=== PATIENT | male | born 1945 | race Caucasian/White ===

== ENCOUNTER → 2016-10-22 | Outpatient (REF) | payer MEDICARE ==
[~2016-10-22] MED LIST: /ADVA50050 INH; /TAMS4CA; /TIOT18INH; /WARF2TA PO; /WARF5TA; ALDA25TA2; ALLO100T PO; ALLO300T; AMMO12CR4 TOP; ASPI1TAB PO; ATOM40CA PO; BABY81CH; BACIDCA PO; BUPR75TA5 PO; CALCTAB43 PO; CARV3.12; CELE20TA; CELE20TA PO; CIPR500T19; CLIN300C PO; COLA100C PO; COMBAER6 INH; COMBIN INH; COMBVENT; CORE3.12 PO; COUM1TAB14 PO; COUM1TAB17 PO; COUM1TAB19 PO; COUM2.5T11 PO; COZA25TA8; CRES40TA PO; Coreg PO; DOCU10ELUD PO; FLUD1TA PO; FURO20TA2 PO; FURO40TA2 PO; GABA300C3 PO; GLUC1KIT SC; GLUC5TAB3 PO; HUMA100I5 SC; HUMOLOG SQ; INSUHUMDS SC; INSULANT SC; INSULIN R; KLOR1TAB77 PO; LAC-12LO3 TOP; MIDO5TA PO; NIFE15CA PO; NORC5TAB PO; NYST100024 TOP; Nystatin Powder TOP; OMEP40CA2 PO; PERC5TAB6 PO; POTA10CA PO; PRIL20CA PO; PROM-190 PO; Potassium PO; ROZE8TAB9 PO; SIMV80TA; SPIR25TA2 PO; TAMS0.4C2 PO; TIOT18INH INH; TYLE167L PO; ULOR80TA PO; ULOR80TA2 PO; VICO5TAB; VITA10002 PO; VITA100027; VITMTA PO; WARF-21 PO; WARFARIN; ZETI10TA; ZETI10TA2 PO; ZINC60OI TOP
[2016-10-22 12:07] LABS: ALBUMIN 3.4 GM/DL (3.2-5.2); ALBUMIN/GLOBULIN RATIO 1.21 (1.00-1.93); ALKALINE PHOSPHATASE 64 U/L (45-117); ALT/SGPT 66 U/L (12-78); ANION GAP 10 MEQ/L (8-16); AST/SGOT 47 U/L (15-37); BILIRUBIN,TOTAL 0.9 MG/DL (0.2-1.0); BLOOD UREA NITROGEN 23 MG/DL (7-18); CALCIUM LEVEL 8.6 MG/DL (8.8-10.2); CARBON DIOXIDE LEVEL 24 MEQ/L (21-32); CHLORIDE LEVEL 109 MEQ/L (98-107); CREATININE FOR GFR 1.17 MG/DL (0.70-1.30); GLOMERULAR FILTRATION RATE > 60.0 (>42); GLUCOSE, FASTING 123 MG/DL (83-110); POTASSIUM SERUM 4.3 MEQ/L (3.5-5.1); SODIUM LEVEL 143 MEQ/L (136-145); TOTAL PROTEIN 6.2 GM/DL (6.4-8.2)
== END ==
LOC: M SFHCPLAZ 11:36
PROVIDERS: ATTEND Family Medicine
DX: N18.3 Chronic kidney disease, stage 3 (moderate) (principal)

== ENCOUNTER → 2016-10-24 | Outpatient (CLI) | payer MEDICAID, MEDICARE ==
--- NOTE | 2016-10-24 16:45 | REP ---
CT study of the chest without contrast: History: Weight loss. No comparison chest CT. CT findings: There is an implanted cardiac monitoring device in the left anterior subcutaneous space. Prior median sternotomy wires are seen. The patient is also status post gastric bypass surgery. There is gallbladder wall thickening and a small hiatal hernia is noted. Extensive vascular calcification is seen. There is a fairly large right thyroid low density lesion consistent with cyst or nodule. This measures 3.9 by 2.6 by 4.4 cm. There is no evidence of pleural effusion or pericardial effusion. There is an area of linear fibroatelectatic change in the right lower lobe. No pulmonary mass or nodule is appreciated. No bony destructive lesion is appreciated. Impression: 1. Patient status post median sternotomy with cardiac monitoring device. Status post gastric bypass procedure 2. Fibroatelectatic changes right lower lobe. 3. Thickening of the gallbladder wall diffusely, question cholecystitis. 4. Small sliding hiatal hernia. 5. 4.4 cm right thyroid nodule or cyst. This could be further evaluated if desired by thyroid sonography. Signed by Mitul Corbett MD 10/24/2016 04:51 P
== END ==
LOC: M RAD 10:25
PROVIDERS: ATTEND Family Medicine
DX: R91.8 Other nonspecific abnormal finding of lung field (principal); E04.1 Nontoxic single thyroid nodule; K44.9 Diaphragmatic hernia without obstruction or gangrene; Z98.84 Bariatric surgery status

== ENCOUNTER → 2016-11-01 | Outpatient (CLI) | payer MEDICARE ==
--- NOTE | 2016-11-01 16:02 | REP ---
The thyroid ultrasound: Comparison is the CT of the chest dated 10/24/2016. Thyroid right lobe: The right lobe is enlarged measuring 6.7 x 3.2 x 3.8 cm. There is a large mass occupying the entire mid and lower pole of the right lobe measuring 4.5 x 3.2 x 2.6 cm. Left lobe: The left lobe is enlarged measuring 5.1 x 1.7 x 1.9 cm. There are two nodules in the mid pole left lobe the larger measuring 0.9 x 0.5 x 0.6 cm, the smaller measuring 0.5 x 0.4 x 0.4 cm. Isthmus: The isthmus is thickened measuring 4.7 mm. There is a cystic nodule in the isthmus on the right measuring 0.8 x 0.3 x 0.6 cm. There is a solid nodule centrally in the isthmus measuring 0.8 x 0.5 x 0.8 cm. Impression: Multiple thyroid nodules, the largest in the right lobe. Consider radionuclide thyroid scan and ultrasound guided needle biopsy. Signed by Ming Qiu MD 11/01/2016 03:54 P
== END ==
LOC: M RAD 14:41
PROVIDERS: ATTEND Physician Assistant Medical
DX: E07.89 Other specified disorders of thyroid (principal); E04.9 Nontoxic goiter, unspecified; E04.1 Nontoxic single thyroid nodule

== ENCOUNTER → 2016-11-01 | Outpatient (CLI) | payer MEDICARE ==
--- NOTE | 2016-11-01 15:20 | REP ---
Clinical: Abdominal pain. Weight loss. Findings: Lung bases demonstrate chronic changes. Liver, spleen, pancreas, gallbladder, bilateral adrenal glands are normal for noncontrast evaluation. 2 mm nonobstructing left renal calculus and mild left renal atrophic changes are suggested. Right kidney hypodensity likely represents a 1.3 cm cyst. The enteric system is without obstruction or acute inflammatory process. Evidence for prior small bowel surgery and gastric bypass surgery noted. Diffuse diverticulosis appreciated without acute diverticulitis. Pelvis demonstrates partially collapsed bladder and age appropriate prostate/seminal vesicles. No ascites. No obvious adenopathy. No free air. No obvious mass lesion. Atherosclerotic changes of the aorta and branch vessels noted. Musculoskeletal structures demonstrate degenerative changes without focal osseous abnormality. Impression: 1. Suspected right renal cyst and 2 mm nonobstructing left renal calculus. 2. Diverticulosis. 3. No acute intra-abdominal or pelvic pathology appreciated. Signed by Dipak Lennon MD 11/01/2016 03:11 P
== END ==
LOC: M RAD 14:39
PROVIDERS: ATTEND Family Medicine
DX: E04.1 Nontoxic single thyroid nodule (principal); R63.4 Abnormal weight loss; K57.30 Diverticulosis of large intestine without perforation or abscess without bleeding

== ENCOUNTER → 2016-11-14 | Outpatient (CLI) | payer MEDICARE ==
--- NOTE | 2016-11-15 14:49 | REP ---
THYROID UPTAKE AND SCAN: HISTORY: Right thyroid mass times two, left-sided cystic nodule. TECHNIQUE: 329.0 microcuries of I 123 sodium iodine is ingested and 2 and 24-uptake values are acquired. Functional images are acquired. FINDINGS: The 2-hour uptake value is quite low at 2.22% (6-12%). 24 uptake value is also low at 9.23% (25 to 35%). Functional thyroid images demonstrate an ill-defined photopenic area in the mid position of the right thyroid lobe as seen on IBARRA oblique projection. No cold or warm lesion is seen on the left. IMPRESSION: Photopenic nodule on the right. Decreased thyroid uptake. Signed by Mitul Corbett MD 11/15/2016 04:47 P
== END ==
LOC: M RAD 12:35
PROVIDERS: ATTEND Physician Assistant Medical
DX: E04.9 Nontoxic goiter, unspecified (principal)
CPT/HCPCS: 78014; A9516

== ENCOUNTER → 2016-11-28 | Outpatient (CLI) | payer MEDICAID, MEDICARE, OTHER ==
[~2016-11-28] MED LIST changes: +LIDOCAINE 1% MDV 20ML VIAL As Ordered ONE
--- NOTE | 2016-11-28 16:47 | REP ---
ULTRASOUND GUIDED THYROID BIOPSY: The procedure was performed under the direct supervision of Dr. Corbett. The patient has a history of a large right thyroid mass measuring 4.5 x 3.2 x 2.6 cm as well as two nodules in the mid-pole of the left thyroid. The largest of which measuring 0.9 x 0.5 x 0.6 cm seen on a previous ultrasound dated 11/01/2016. The risks and benefits of the procedure were explained to the patient and informed consent was obtained. The right thyroid mass and largest left thyroid nodule was localized using ultrasound guidance. The skin was prepped and draped in a sterile fashion. 1% Xylocaine was used as a local anesthetic. The left thyroid was addressed first. Using ultrasound guidance, 4 fine-needle aspirations were obtained using 25-gauge needles. The right thyroid mass was then addressed. Using ultrasound guidance 4 fine-needle aspirations were obtained using 25-gauge needles. The patient tolerated the procedure well and there were no immediate complications. After the appropriate amount of monitored convalesce the patient was discharged from the department. Reviewed by JILLIAN Holm 11/29/2016 02:12 PEdited and Signed by Mitul Corbett MD 11/29/2016 05:02 P
== END | disposition home or self-care (01) ==
LOC: M RADPRO 11:30
PROVIDERS: ATTEND Physician Assistant Medical
DX: E07.89 Other specified disorders of thyroid (principal); Z91.041 Radiographic dye allergy status; Z91.018 Allergy to other foods; Z79.899 Other long term (current) drug therapy; Z79.82 Long term (current) use of aspirin

== ENCOUNTER → 2016-12-02 | Outpatient (REF) | payer MEDICARE, MEDICAID, OTHER ==
[~2016-12-02] MED LIST changes: -COLA100C PO; +COLA100C3 PO; +ELIQ5TAB PO; +GABA-282 PO; -GABA300C3 PO; -LIDOCAINE 1% MDV 20ML VIAL As Ordered ONE; +NEUR300C PO; +NORC1TAB4 PO; -NORC5TAB PO; +TRAZ100T4 PO
[2016-12-02 12:11] LABS: BASO % 0.6 % (0.0-1.0); EOS % 1.6 % (0.0-3.0); LARGE UNSTAINED CELL # 0.1 K/mm3 (0.0-0.4); LARGE UNSTAINED CELL % 2.9 % (0.0-4.0); LYMPH # 1.2 K/mm3 (1.5-4.5); LYMPH % 31.9 % (24.0-44.0); MEAN CORPUSCULAR HEMOGLOBIN 32.1 pg (27.0-33.0); MEAN CORPUSCULAR HGB CONC 33.5 g/dl (32.0-36.5); MEAN CORPUSCULAR VOLUME 95.8 fl (80.0-96.0); MONO # 0.2 K/mm3 (0.0-0.8); MONO % 5.7 % (0.0-5.0); NEUTROPHILS # 1.9 K/mm3 (1.8-7.7); NEUTROPHILS % 57.4 % (36.0-66.0); PLATELET COUNT, AUTOMATED 115 k/mm3 (150-450); WHITE BLOOD COUNT 3.3 K/mm3 (4.0-10.0)
[2016-12-02 12:40] LABS: ALBUMIN 3.1 GM/DL (3.2-5.2); ALBUMIN/GLOBULIN RATIO 1.35 (1.00-1.93); ALKALINE PHOSPHATASE 50 U/L (45-117); ALT/SGPT 35 U/L (12-78); ANION GAP 6 MEQ/L (8-16); AST/SGOT 30 U/L (15-37); BILIRUBIN,TOTAL 0.7 MG/DL (0.2-1.0); BLOOD UREA NITROGEN 28 MG/DL (7-18); CALCIUM LEVEL 8.3 MG/DL (8.8-10.2); CARBON DIOXIDE LEVEL 28 MEQ/L (21-32); CHLORIDE LEVEL 108 MEQ/L (98-107); CHOLESTEROL LEVEL 90 MG/DL (<200); FREE T4 1.01 NG/DL (0.76-1.46); GLOMERULAR FILTRATION RATE 57.6 (>42); GLUCOSE, FASTING 100 MG/DL (83-110); POTASSIUM SERUM 4.9 MEQ/L (3.5-5.1); SODIUM LEVEL 142 MEQ/L (136-145); TOTAL PROTEIN 5.4 GM/DL (6.4-8.2); TRIGLYCERIDES LEVEL 83 MG/DL (<150)
[2016-12-05 00:06] LABS: BENZODIAZEPINES, URINE SCREEN Negative ng/mL (Cutoff=200); METHADONE, URINE SCREEN Negative ng/mL (Cutoff=300); pH, URINE 5.2 (4.5-8.9)
== END ==
LOC: M SFHCPLAZ 08:11
PROVIDERS: ATTEND Family Medicine
DX: N18.3 Chronic kidney disease, stage 3 (moderate) (principal); E78.5 Hyperlipidemia, unspecified; E11.22 Type 2 diabetes mellitus with diabetic chronic kidney disease; Z79.4 Long term (current) use of insulin; Z79.891 Long term (current) use of opiate analgesic; Z79.899 Other long term (current) drug therapy; Z79.82 Long term (current) use of aspirin; Z79.01 Long term (current) use of anticoagulants; Z79.84 Long term (current) use of oral hypoglycemic drugs; E07.89 Other specified disorders of thyroid; I95.1 Orthostatic hypotension; G47.09 Other insomnia; L89.151 Pressure ulcer of sacral region, stage 1
CPT/HCPCS: 80053; 80061; 80307; 81001; 82043; 82550; 83036; 84439; 84443; 85025; 86140; G0463

== ENCOUNTER 2016-12-11 21:25 | Emergency (ER) | payer MEDICARE ==
[~2016-12-11] VITALS: Ht 167.6 cm; Wt 66.7 kg
[~2016-12-11 21:25] MED LIST changes: -GLYCOPYRROLATE INJ 0.2 MG/ML 2 ML VIAL As Ordered ONE; -NS 1,000 ML IV SCH; -PROPOFOL 200 MG/20 ML VIAL As Ordered ONE; -ePHEDrine SULFATE 25 MG/5 ML(5MG/ML) SYRINGE As Ordered ONE
[2016-12-12 00:17] VITALS: BP 132/63
== END 2016-12-12 01:21 | disposition home or self-care (01) ==
LOC: EDBD 21:25 → M ED 22:47
DX: R33.0 Drug induced retention of urine (principal); E11.9 Type 2 diabetes mellitus without complications; J44.9 Chronic obstructive pulmonary disease, unspecified; I25.10 Atherosclerotic heart disease of native coronary artery without angina pectoris; K21.9 Gastro-esophageal reflux disease without esophagitis; N40.0 Benign prostatic hyperplasia without lower urinary tract symptoms; Z87.442 Personal history of urinary calculi; Z86.718 Personal history of other venous thrombosis and embolism; Z79.899 Other long term (current) drug therapy; Z79.82 Long term (current) use of aspirin; Z79.4 Long term (current) use of insulin; Z79.01 Long term (current) use of anticoagulants; Z91.018 Allergy to other foods; Z91.041 Radiographic dye allergy status

== ENCOUNTER → 2016-12-11 | Outpatient (CLI) | payer MEDICARE ==
[~2016-12-11] VITALS: Ht 172.7 cm; Wt 66.7 kg
[~2016-12-11] MED LIST changes: +GLYCOPYRROLATE INJ 0.2 MG/ML 2 ML VIAL As Ordered ONE; +NS 1,000 ML IV SCH; +PROPOFOL 200 MG/20 ML VIAL As Ordered ONE; +ePHEDrine SULFATE 25 MG/5 ML(5MG/ML) SYRINGE As Ordered ONE
--- NOTE | 2016-12-11 10:01 | ROOR ---
Patient Name: Allan Pérez Procedure Date: 12/11/2016 9:19 AM Date of : 1945 Age: 71 Room: [facility] Gender: Male Note Status: Finalized Procedure: Upper GI endoscopy Indications: Diagnostic procedure, Weight loss Providers: Keny Story MD Referring MD: Steve Hamlin MD Requesting Provider: Medicines: Monitored Anesthesia Care Complications: No immediate complications. Procedure: Pre-Anesthesia Assessment: - Prior to the procedure, a History and Physical was performed, and patient medications and allergies were reviewed. The patient is competent. The risks and benefits of the procedure and the sedation options and risks were discussed with the patient. All questions were answered and informed consent was obtained. Patient identification and proposed procedure were verified by the physician, the nurse and the anesthesiologist in the endoscopy suite. Mental Status Examination: alert and oriented. Airway Examination: normal oropharyngeal airway and neck mobility. Respiratory Examination: clear to auscultation. CV Examination: normal. Prophylactic Antibiotics: The patient does not require prophylactic antibiotics. Prior Anticoagulants: The patient has taken Eliquis (apixaban), last dose was 2 days prior to procedure. ASA Grade Assessment: III - A patient with severe systemic disease. After reviewing the risks and benefits, the patient was deemed in satisfactory condition to undergo the procedure. The anesthesia plan was to use monitored anesthesia care (MAC). Immediately prior to administration of medications, the patient was re-assessed for adequacy to receive sedatives. The heart rate, respiratory rate, oxygen saturations, blood pressure, adequacy of pulmonary ventilation, and response to care were monitored throughout the procedure. The physical status of the patient was re-assessed after the procedure. The Endoscope was introduced through the mouth, and advanced to the afferent and efferent jejunal loops. The upper GI endoscopy was accomplished without difficulty. The patient tolerated the procedure well. Findings: The examined esophagus was normal. Estimated blood loss: none. A small hiatal hernia was present. Estimated blood loss: none. Evidence of a gastric bypass was found. A gastric pouch with a normal size was found. The gastrojejunal anastomosis was characterized by healthy appearing mucosa. This was traversed. The lwvgu-[id number]-tffuegm limb was characterized by healthy appearing mucosa. The rbexpxoh-da-aznepkf limb was not examined as it could not be found. Impression: - Normal esophagus. - Small hiatal hernia. - Gastric bypass with a normal-sized pouch. Gastrojejunal anastomosis characterized by healthy appearing mucosa. - No specimens collected. - Normal examination. Recommendation: - Discharge patient to home (ambulatory). Keny Story MD Keny Story MD 12/11/2016 10:01:03 AM This report has been signed electronically. Number of Addenda: 0 Note Initiated On: 12/11/2016 9:19 AM Estimated Blood Loss: Estimated blood loss: none.
--- NOTE | 2016-12-11 10:05 | ROOR ---
Patient Name: lAlan Pérez Procedure Date: 12/11/2016 9:19 AM Date of : 1945 Age: 71 Room: [facility] Gender: Male Note Status: Finalized Procedure: Colonoscopy Indications: High risk colon cancer surveillance: Personal history of colonic polyps Providers: Keny Story MD Referring MD: Steev Hamlin MD Requesting Provider: Medicines: Monitored Anesthesia Care Complications: No immediate complications. Procedure: Pre-Anesthesia Assessment: - This assessment was completed prior to the administration of sedation. The Colonoscope was introduced through the anus and advanced to the cecum, identified by appendiceal orifice and ileocecal valve. The colonoscopy was performed without difficulty. The patient tolerated the procedure well. The quality of the bowel preparation was adequate to identify polyps. Findings: The perianal and digital rectal examinations were normal. A few small-mouthed diverticula were found in the sigmoid colon. A diminutive polyp was found in the hepatic flexure. The polyp was flat. The polyp was removed with a jumbo cold forceps. Resection and retrieval were complete. Estimated blood loss was minimal. A diminutive polyp was found in the proximal descending colon. The polyp was pedunculated. The polyp was removed with a jumbo cold forceps. Resection and retrieval were complete. Estimated blood loss was minimal. No additional abnormalities were found on retroflexion. Impression: - Diverticulosis in the sigmoid colon. - One diminutive polyp at the hepatic flexure, removed with a jumbo cold forceps. Resected and retrieved. - One diminutive polyp in the proximal descending colon, removed with a jumbo cold forceps. Resected and retrieved. Recommendation: - Discharge patient to home (ambulatory). - Resume Eliquis (apixaban) today at prior dose. - Await pathology results. - Telephone my office for pathology results in 2 weeks. Keny Story MD Keny Story MD 12/11/2016 10:05:07 AM This report has been signed electronically. Number of Addenda: 0 Note Initiated On: 12/11/2016 9:19 AM Estimated Blood Loss: Estimated blood loss was minimal.
[2016-12-11 10:23] VITALS: BP 98/55
== END | disposition home or self-care (01) ==
LOC: M OPP 07:08
PROVIDERS: ATTEND Surgery
DX: Z12.11 Encounter for screening for malignant neoplasm of colon (principal); D12.3 Benign neoplasm of transverse colon; D12.4 Benign neoplasm of descending colon; K57.30 Diverticulosis of large intestine without perforation or abscess without bleeding; R63.4 Abnormal weight loss; Z86.010 Personal history of colon polyps; K44.9 Diaphragmatic hernia without obstruction or gangrene; Z98.84 Bariatric surgery status; I25.10 Atherosclerotic heart disease of native coronary artery without angina pectoris; E78.5 Hyperlipidemia, unspecified; E10.9 Type 1 diabetes mellitus without complications; M10.9 Gout, unspecified; Z86.718 Personal history of other venous thrombosis and embolism; M19.90 Unspecified osteoarthritis, unspecified site; F32.9 Major depressive disorder, single episode, unspecified; G62.9 Polyneuropathy, unspecified; R06.83 Snoring; G47.30 Sleep apnea, unspecified; J44.9 Chronic obstructive pulmonary disease, unspecified; N18.9 Chronic kidney disease, unspecified; Z95.818 Presence of other cardiac implants and grafts; Z95.1 Presence of aortocoronary bypass graft; Z87.891 Personal history of nicotine dependence; Z91.018 Allergy to other foods; Z91.041 Radiographic dye allergy status; Z79.82 Long term (current) use of aspirin; Z79.4 Long term (current) use of insulin; Z96.41 Presence of insulin pump (external) (internal)

== ENCOUNTER → 2016-12-13 | Outpatient (CLI) | payer MEDICARE ==
[~2016-12-13] MED LIST changes: +LIDOCAINE 1% MDV 20ML VIAL As Ordered ONE
--- NOTE | 2016-12-13 18:40 | REP ---
ULTRASOUND GUIDED RIGHT THYROID BIOPSY: The procedure was performed under the direct supervision of Dr. Jefferson. The patient has a history of a large right thyroid mass measuring 4.5 x 3.2 x 2.6 cm seen on a previous ultrasound dated 11/01/2016. The patient had this biopsied on 11/28/2016, however the pathology results were nondiagnostic and therefore the patient is referred for rebiopsy of the right thyroid nodule. The risks and benefits of the procedure were explained to the patient and informed consent was obtained. The right thyroid mass was localized using ultrasound guidance. The skin was prepped and draped in a sterile fashion. 1% Xylocaine was used as a local anesthetic. Using ultrasound guidance 4 fine-needle aspirations were obtained using 25-gauge needles. All samples were sent to the lab for analysis. The patient tolerated the procedure well and there were no immediate complications. After the appropriate amount of monitored convalescence the patient was discharged from the department. Reviewed by JILLIAN Holm 12/16/2016 06:55 PEdited and Signed by Angel Jefferson MD 12/19/2016 09:53 A
== END | disposition home or self-care (01) ==
LOC: M RADPRO 08:25
PROVIDERS: ATTEND Physician Assistant Medical
DX: E07.89 Other specified disorders of thyroid (principal); E11.9 Type 2 diabetes mellitus without complications; I95.1 Orthostatic hypotension; G47.09 Other insomnia; L89.151 Pressure ulcer of sacral region, stage 1; Z79.899 Other long term (current) drug therapy; Z79.82 Long term (current) use of aspirin; Z79.4 Long term (current) use of insulin; Z91.041 Radiographic dye allergy status; Z88.8 Allergy status to other drugs, medicaments and biological substances

== ENCOUNTER → 2016-12-26 | Outpatient (CLI) | payer MEDICARE, OTHER ==
[~2016-12-26] MED LIST changes: -LIDOCAINE 1% MDV 20ML VIAL As Ordered ONE
[2016-12-26 09:32] LABS: BASO % 0.4 % (0.0-1.0); EOS # 0.1 K/mm3 (0.0-0.50); EOS % 3.9 % (0.0-3.0); LARGE UNSTAINED CELL # 0.1 K/mm3 (0.0-0.4); LARGE UNSTAINED CELL % 2.3 % (0.0-4.0); LYMPH # 0.7 K/mm3 (1.5-4.5); LYMPH % 23.3 % (24.0-44.0); MEAN CORPUSCULAR HEMOGLOBIN 31.5 pg (27.0-33.0); MEAN CORPUSCULAR HGB CONC 32.7 g/dl (32.0-36.5); MEAN CORPUSCULAR VOLUME 96.3 fl (80.0-96.0); MONO # 0.2 K/mm3 (0.0-0.8); MONO % 6.7 % (0.0-5.0); NEUTROPHILS # 1.7 K/mm3 (1.8-7.7); NEUTROPHILS % 63.4 % (36.0-66.0); PLATELET COUNT, AUTOMATED 126 k/mm3 (150-450); RED CELL DISTRIBUTION WIDTH 13.2 % (11.5-14.5)
[2016-12-26 12:16] LABS: ANION GAP 2 MEQ/L (8-16); BLOOD UREA NITROGEN 19 MG/DL (7-18); CALCIUM LEVEL 8.2 MG/DL (8.8-10.2); CARBON DIOXIDE LEVEL 32 MEQ/L (21-32); CHLORIDE LEVEL 106 MEQ/L (98-107); CREATININE FOR GFR 1.03 MG/DL (0.70-1.30); GLOMERULAR FILTRATION RATE > 60.0 (>42); GLUCOSE, FASTING 152 MG/DL (83-110); POTASSIUM SERUM 4.5 MEQ/L (3.5-5.1); SODIUM LEVEL 140 MEQ/L (136-145)
== END ==
LOC: M LAB 08:58
PROVIDERS: ATTEND Family Medicine
DX: R31.9 Hematuria, unspecified (principal)

== ENCOUNTER → 2016-12-27 | Outpatient (CLI) | payer MEDICARE ==
--- NOTE | 2016-12-27 08:22 | REP ---
CT ABDOMEN AND PELVIS WITHOUT CONTRAST: 12/27/2016. Comparison: 11/01/2016. Clinical history: Hematuria. Findings: Noncontrast renal stone protocol with coronal and sagittal recons.CT abdomen: Lung bases show very small bilateral effusions. Some minor dependent atelectatic change and basilar fibrotic changes left greater than right. Sternotomy wires are visible along with coronary artery calcifications and mediastinal clips. The heart is not enlarged. There is no pericardial thickening or effusion. There is a small hiatal hernia. Staple lines from gastric bypass are noted at the GE junction and the left upper quadrant. There is interposed right colon and hepatic flexure between the anterior abdominal wall, diaphragm, and the liver. No hepatosplenomegaly or focal hepatic mass. There is no biliary dilatation. Gallbladder shows slight wall thickening without calcified stone. Pancreas somewhat atrophic but without mass. There are calcifications aorta and branches without aneurysm. Adrenal gland show thickened limbs consistent with adrenal hyperplasia. No periaortic or other retroperitoneal pathologic sized lymphadenopathy. Mild to moderate stool throughout the abdominal portion of the colon without signs of colitis or diverticulitis. There is scattered diverticula. Small bowel loops show some gaseous distension in the upper abdomen, anterior and superior to the transverse colon but this configuration is unchanged. There are advanced degenerative disc changes and facet arthritic changes again noted lumbar spine and degenerative change lower thoracic spine as well. Visualized ribs intact. There is a lower pole cyst exophytic in the right kidney unchanged. In the left kidney is a 4 mm stone lower pole unchanged in location but increased in size from the October study. There is no hydronephrosis or hydroureter on either side. The ureters show normal course to the bladder. Neither ureter shows a stone. Subcutaneous fat all around the abdomen and pelvis shows edema suggesting anasarca. CT pelvis. The bony hips, pelvis, SI joints and lumbosacral junction show degenerative changes. No visible fracture or destructive lesion. Distal ureters without dilatation or stone. There is a nodular impression on the bladder base from enlarged prostate. The bladder wall is thickened. There are some air bubbles within it. Although there are bowel loops sitting on the bladder dome, I favor gas-forming organisms for urinary tract infection versus air introduced with bladder catheterization as I cannot clearly define a fistula from bowel. The distal left colon, sigmoid and rectum show no definite colitis or diverticulitis. There is no pelvic ascites or adenopathy. There is no perforation or free air in the abdomen or pelvis. No ventral or inguinal hernia. Surgical clips in the lower abdominal wall in the pelvis. Impression: 1. There is a 4 mm stone lower pole of the left kidney without hydronephrosis, hydroureter or ureteral stone. This has slightly increased in size since October. A small cyst projects off the lower pole of the right kidney unchanged. 2. Bladder with some wall thickening, nodular impression on the bladder base by enlarged prostate and some air bubbles in the bladder either from urinary tract infection with gas forming organism or catheterization recently. Although bowel loops abut the bladder, I cannot confirm a fistulous tract on these images without oral contrast. 3. No ascites, adenopathy or mass. 4. Atherosclerotic calcifications aorta and branches. Suspected anasarca. Prior gastric bypass. Signed by Angel Jefferson MD 12/27/2016 02:57 P
== END ==
LOC: M RAD 06:39
PROVIDERS: ATTEND Physician Assistant Medical
DX: N20.0 Calculus of kidney (principal); N28.1 Cyst of kidney, acquired; N32.89 Other specified disorders of bladder; I70.0 Atherosclerosis of aorta; Z98.84 Bariatric surgery status; N40.1 Benign prostatic hyperplasia with lower urinary tract symptoms

== ENCOUNTER → 2017-02-18 | Outpatient (REF) | payer MEDICARE, MEDICAID, OTHER ==
[~2017-02-18] MED LIST changes: +FINA5TAB2 PO; +FLOM5CAP PO; +MIDO10TA PO; +PRESCAP6 PO; +REFR0.5D8 OU
[2017-02-18 14:16] LABS: DIFF SLIDE NUMBER 213; MEAN CORPUSCULAR HEMOGLOBIN 32.8 pg (27.0-33.0); MEAN CORPUSCULAR HGB CONC 33.4 g/dl (32.0-36.5); MEAN CORPUSCULAR VOLUME 98.2 fl (80.0-96.0); PLATELET COUNT, AUTOMATED 119 k/mm3 (150-450); WHITE BLOOD COUNT 2.8 K/mm3 (4.0-10.0)
[2017-02-18 14:33] LABS: ALBUMIN 3.3 GM/DL (3.2-5.2); ALBUMIN/GLOBULIN RATIO 1.27 (1.00-1.93); ALKALINE PHOSPHATASE 64 U/L (45-117); ALT/SGPT 50 U/L (12-78); ANION GAP 3 MEQ/L (8-16); AST/SGOT 37 U/L (15-37); BILIRUBIN,TOTAL 0.6 MG/DL (0.2-1.0); BLOOD UREA NITROGEN 26 MG/DL (7-18); CALCIUM LEVEL 8.8 MG/DL (8.8-10.2); CARBON DIOXIDE LEVEL 32 MEQ/L (21-32); CHLORIDE LEVEL 107 MEQ/L (98-107); CREATININE FOR GFR 1.02 MG/DL (0.70-1.30); FERRITIN 39 NG/ML (26-388); GLOMERULAR FILTRATION RATE > 60.0 (>42); GLUCOSE, FASTING 105 MG/DL (83-110); MAGNESIUM LEVEL 2.2 MG/DL (1.8-2.4); PERCENT SATURATION 23.4 % (19.7-37.4); POTASSIUM SERUM 4.5 MEQ/L (3.5-5.1); SODIUM LEVEL 142 MEQ/L (136-145); TOTAL IRON BINDING CAPACITY 290 UG/DL (250-450); TOTAL PROTEIN 5.9 GM/DL (6.4-8.2)
[2017-02-18 14:56] LABS: ANISOCYTOSIS 1+; BASOPHILS 2 % (0-4)
[2017-02-21 11:13] LABS: ALBUMIN % 59.4 % (55.8-66.1); GAMMA GLOBULIN % 11.3 % (11.1-18.8)
== END ==
LOC: M SFHCPLAZ 11:32
PROVIDERS: ATTEND Family Medicine
DX: N18.3 Chronic kidney disease, stage 3 (moderate) (principal); E55.9 Vitamin D deficiency, unspecified; E04.2 Nontoxic multinodular goiter; D72.819 Decreased white blood cell count, unspecified; L89.152 Pressure ulcer of sacral region, stage 2; I87.2 Venous insufficiency (chronic) (peripheral); I83.009 Varicose veins of unspecified lower extremity with ulcer of unspecified site; K63.5 Polyp of colon; M47.816 Spondylosis without myelopathy or radiculopathy, lumbar region; N40.1 Benign prostatic hyperplasia with lower urinary tract symptoms; I95.1 Orthostatic hypotension; Z51.81 Encounter for therapeutic drug level monitoring; Z79.01 Long term (current) use of anticoagulants; I82.409 Acute embolism and thrombosis of unspecified deep veins of unspecified lower extremity; E11.40 Type 2 diabetes mellitus with diabetic neuropathy, unspecified; I25.10 Atherosclerotic heart disease of native coronary artery without angina pectoris; E78.5 Hyperlipidemia, unspecified; Z98.84 Bariatric surgery status; R27.0 Ataxia, unspecified; K76.0 Fatty (change of) liver, not elsewhere classified; F32.9 Major depressive disorder, single episode, unspecified; E53.8 Deficiency of other specified B group vitamins
CPT/HCPCS: 36415; 80053; 82306; 82728; 83036; 83550; 83735; 83970; 84165; 85025; G0463

== ENCOUNTER → 2017-02-24 | Outpatient (CLI) | payer MEDICARE, MEDICAID ==
--- NOTE | 2017-02-25 05:07 | REP ---
Clinical: Multinodular goiter. Technique: Real time rivas scale and color evaluation using linear high frequency transducer. Comparison: 11/01/2016. Findings: The thyroid gland is diffusely heterogeneous. Right lobe measures 6.3 x 3.3 x 3.9 cm with a large solid nodule measuring 4.4 x 3.4 x 2.6 cm as well as 8 mm complex partially calcified nodule and 7 mm cyst in the mid to lower pole. Isthmus measures 4.3 mm in width. Left lobe measures 4.3 x 1.6 x 1.2 cm with 6 mm complex partially calcified nodule in the mid pole as well as 8 mm and 5 mm nonspecific lower pole nodules. Impression: Thyroid gland with nodules as described above essentially unchanged compared to prior examination. Signed by Dipak Lennon MD 02/25/2017 04:59 A
== END ==
LOC: M RAD 09:31
PROVIDERS: ATTEND Family Medicine
DX: E04.2 Nontoxic multinodular goiter (principal)

== ENCOUNTER 2017-02-27 15:30 | Inpatient (IN) | payer MEDICARE, MEDICAID ==
[~2017-02-27] VITALS: Ht 172.7 cm; Wt 71.7 kg
[~2017-02-27 15:30] MED LIST changes: -FINA5TAB2 PO; -FLOM5CAP PO; -MIDO10TA PO; -PRESCAP6 PO; -REFR0.5D8 OU
[2017-02-27] MEDS ORDERED: FINA5TAB2 PO (15:53)
[2017-02-27] MEDS ORDERED: NORCO, ANEXSIA 5/325MG TABLET (HYDROcodone/ACETAMINOPHEN) PO ONE (17:45)
[2017-02-27 17:48] LABS: BASO % 0.7 % (0.0-1.0); LARGE UNSTAINED CELL # 0.1 K/mm3 (0.0-0.4); LARGE UNSTAINED CELL % 2.2 % (0.0-4.0); LYMPH # 1.4 K/mm3 (1.5-4.5); LYMPH % 31.4 % (24.0-44.0); MEAN CORPUSCULAR HEMOGLOBIN 32.4 pg (27.0-33.0); MEAN CORPUSCULAR VOLUME 98.2 fl (80.0-96.0); MONO # 0.2 K/mm3 (0.0-0.8); MONO % 5.4 % (0.0-5.0); NEUTROPHILS # 2.4 K/mm3 (1.8-7.7); NEUTROPHILS % 59.3 % (36.0-66.0); PLATELET COUNT, AUTOMATED 145 k/mm3 (150-450); RED CELL DISTRIBUTION WIDTH 13.2 % (11.5-14.5)
[2017-02-27 18:23] LABS: ANION GAP 5 MEQ/L (8-16); BLOOD UREA NITROGEN 20 MG/DL (7-18); CALCIUM LEVEL 8.7 MG/DL (8.8-10.2); CARBON DIOXIDE LEVEL 31 MEQ/L (21-32); CHLORIDE LEVEL 103 MEQ/L (98-107); CREATININE FOR GFR 0.97 MG/DL (0.70-1.30); GLOMERULAR FILTRATION RATE > 60.0 (>42); GLUCOSE, FASTING 106 MG/DL (83-110); SODIUM LEVEL 139 MEQ/L (136-145)
[2017-02-27] MEDS ORDERED: HEPARIN DRIP 25,000 UNITS in APPROPRIATE DILUENT 1 EA IV SCH ×2 (19:04→19:19)
[2017-02-27] MEDS ORDERED: HEPARIN SOD (PORCINE) 5000 UNITS/ML VIAL IV ONE ×2 (19:15→19:30)
[2017-02-27 19:33] LABS: INR 1.09
[2017-02-27] MEDS: WARFARIN SOD 10 MG TAB PO SCH (19:44)
[2017-02-27] MEDS ORDERED: COLA100C3 PO (19:49)
[2017-02-27] MEDS ORDERED: FLOM5CAP PO (19:49)
[2017-02-27] MEDS ORDERED: MIDO10TA PO (19:49)
[2017-02-27] MEDS ORDERED: BUPR75TA5 PO (19:49)
[2017-02-27] MEDS ORDERED: PRESCAP6 PO (19:51)
[2017-02-27] MEDS ORDERED: REFR0.5D8 OU (19:51)
[2017-02-27] MEDS ORDERED: ACETAMINOPHEN TAB 650MG DOSE (2X325MG) PO PRN (20:00)
[2017-02-27] MEDS ORDERED: GLUCAGON FOR INJ 1 MG VIAL (J1610) SC PRN (20:00)
[2017-02-27] MEDS ORDERED: DEXTROSE 50% 50 ML SYRINGE IV PRN (20:00)
[2017-02-27] MEDS ORDERED: ONDANSETRON 4MG/2ML VIAL (J2405) IV PRN (20:00)
[2017-02-27] MEDS ORDERED: GLUCOSE 4 GM CHEW TABLET PO PRN (20:00)
[2017-02-27] MEDS: HumaLOG INSULIN (NovoLOG) PER UNIT SC SCH (21:00)
[2017-02-27 21:36] VITALS: BP 170/70
[2017-02-27] MEDS ORDERED: HEPARIN SOD (PORCINE) 5000 UNITS/ML VIAL IV PRN (21:45)
[2017-02-27] MEDS: TAMSULOSIN 0.4 MG CAP PO SCH (22:24)
[2017-02-27] MEDS: traZODone 100 MG TAB PO SCH (22:25)
[2017-02-27] MEDS: ROSUVASTATIN 10 MG TAB (CRESTOR) PO SCH (22:25)
[2017-02-27] MEDS: DOCUSATE SODIUM 100 MG CAP PO SCH (22:25)
[2017-02-27] MEDS: buPROPion 75 MG TAB PO SCH (22:26)
[2017-02-27] MEDS: RAMELTEON 8 MG TAB (ROZEREM) PO SCH (22:26)
[2017-02-27] MEDS: GABAPENTIN 300 MG CAP PO SCH (22:26)
[2017-02-27] MEDS: ASPIRIN 81 MG ENTERIC TAB PO SCH (22:26)
[2017-02-28] VITALS (7 sets, daily range): BP systolic 109–155; BP diastolic 55–68
[2017-02-28 05:30] LABS: MEAN CORPUSCULAR HEMOGLOBIN 32.1 pg (27.0-33.0); MEAN CORPUSCULAR VOLUME 97.2 fl (80.0-96.0); WHITE BLOOD COUNT 3.3 K/mm3 (4.0-10.0)
[2017-02-28 05:35] LABS: INR 1.17
[2017-02-28 05:51] LABS: ANION GAP 6 MEQ/L (8-16); BLOOD UREA NITROGEN 19 MG/DL (7-18); CALCIUM LEVEL 8.1 MG/DL (8.8-10.2); CARBON DIOXIDE LEVEL 28 MEQ/L (21-32); CHLORIDE LEVEL 107 MEQ/L (98-107); CREATININE FOR GFR 0.82 MG/DL (0.70-1.30); GLOMERULAR FILTRATION RATE > 60.0 (>42); GLUCOSE, FASTING 94 MG/DL (83-110); POTASSIUM SERUM 3.7 MEQ/L (3.5-5.1); SODIUM LEVEL 141 MEQ/L (136-145)
[2017-02-28] MEDS: HumaLOG INSULIN (NovoLOG) PER UNIT SC SCH ×4 (07:30→21:00)
[2017-02-28] MEDS ORDERED: FUROSEMIDE 40 MG/4 ML VIAL (J1940) IV ONE (08:00)
[2017-02-28] MEDS: DOCUSATE SODIUM 100 MG CAP PO SCH ×2 (09:45→20:51)
[2017-02-28] MEDS: GABAPENTIN 300 MG CAP PO SCH ×3 (09:45→20:53)
[2017-02-28] MEDS: FEBUXOSTAT 40 MG TABLET (ULORIC) PO SCH (09:45)
[2017-02-28] MEDS: OMEPRAZOLE 20 MG CAP PO SCH (09:45)
[2017-02-28] MEDS: CYANOCOBALAMIN 500 MCG TAB PO SCH (09:46)
[2017-02-28] MEDS: FINASTERIDE 5 MG TAB PO SCH (09:46)
[2017-02-28] MEDS: buPROPion 75 MG TAB PO SCH ×3 (09:46→20:53)
[2017-02-28] MEDS: POTASSIUM CHLORIDE 10 MEQ SR TABLET PO SCH (09:46)
[2017-02-28] MEDS: MULTIVITAMINS/MINERALS THERAP 1 TAB PO SCH (09:46)
[2017-02-28] MEDS: MIDODRINE 5 MG TAB PO SCH ×3 (09:56→17:33)
[2017-02-28] MEDS: WARFARIN SOD 10 MG TAB PO SCH (17:34)
[2017-02-28] MEDS: ROSUVASTATIN 10 MG TAB (CRESTOR) PO SCH (20:53)
[2017-02-28] MEDS: TAMSULOSIN 0.4 MG CAP PO SCH (20:53)
[2017-02-28] MEDS: traZODone 100 MG TAB PO SCH (20:53)
[2017-02-28] MEDS: RAMELTEON 8 MG TAB (ROZEREM) PO SCH (20:53)
[2017-02-28] MEDS: HEPARIN DRIP 25,000 UNITS in APPROPRIATE DILUENT 1 EA IV SCH (20:59)
[2017-02-28] MEDS: ASPIRIN 81 MG ENTERIC TAB PO SCH (21:00)
[2017-03-01 04:00] VITALS: BP 130/59
[2017-03-01 05:35] LABS: INR 1.76
[2017-03-01 05:35] LABS: MEAN CORPUSCULAR HEMOGLOBIN 32.3 pg (27.0-33.0); MEAN CORPUSCULAR HGB CONC 32.9 g/dl (32.0-36.5); RED CELL DISTRIBUTION WIDTH 13.3 % (11.5-14.5); WHITE BLOOD COUNT 2.7 K/mm3 (4.0-10.0)
[2017-03-01 05:37] LABS: ANION GAP 4 MEQ/L (8-16); BLOOD UREA NITROGEN 24 MG/DL (7-18); CALCIUM LEVEL 8.2 MG/DL (8.8-10.2); CARBON DIOXIDE LEVEL 34 MEQ/L (21-32); CHLORIDE LEVEL 103 MEQ/L (98-107); GLOMERULAR FILTRATION RATE > 60.0 (>42); GLUCOSE, FASTING 112 MG/DL (83-110); MAGNESIUM LEVEL 2.1 MG/DL (1.8-2.4); POTASSIUM SERUM 3.7 MEQ/L (3.5-5.1); SODIUM LEVEL 141 MEQ/L (136-145)
[2017-03-01 07:10] VITALS: BP 153/65
[2017-03-01] MEDS: HumaLOG INSULIN (NovoLOG) PER UNIT SC SCH ×4 (07:30→21:00)
[2017-03-01] MEDS: FEBUXOSTAT 40 MG TABLET (ULORIC) PO SCH (08:50)
[2017-03-01] MEDS: MULTIVITAMINS/MINERALS THERAP 1 TAB PO SCH (08:50)
[2017-03-01] MEDS: POTASSIUM CHLORIDE 10 MEQ SR TABLET PO SCH (08:50)
[2017-03-01] MEDS: buPROPion 75 MG TAB PO SCH ×3 (08:51→21:38)
[2017-03-01] MEDS: FINASTERIDE 5 MG TAB PO SCH (08:51)
[2017-03-01] MEDS: DOCUSATE SODIUM 100 MG CAP PO SCH ×2 (08:51→21:38)
[2017-03-01] MEDS: MIDODRINE 5 MG TAB PO SCH ×3 (08:51→16:10)
[2017-03-01] MEDS: OMEPRAZOLE 20 MG CAP PO SCH (08:51)
[2017-03-01] MEDS: GABAPENTIN 300 MG CAP PO SCH ×3 (08:51→21:38)
[2017-03-01] MEDS: CYANOCOBALAMIN 500 MCG TAB PO SCH (08:51)
[2017-03-01 11:22] VITALS: BP 157/69
[2017-03-01 14:00] VITALS: BP 125/58
[2017-03-01] MEDS: WARFARIN SOD 10 MG TAB PO SCH (16:11)
[2017-03-01] MEDS: traZODone 100 MG TAB PO SCH (21:38)
[2017-03-01] MEDS: ASPIRIN 81 MG ENTERIC TAB PO SCH (21:38)
[2017-03-01] MEDS: TAMSULOSIN 0.4 MG CAP PO SCH (21:38)
[2017-03-01] MEDS: ROSUVASTATIN 10 MG TAB (CRESTOR) PO SCH (21:38)
[2017-03-01] MEDS: RAMELTEON 8 MG TAB (ROZEREM) PO SCH (21:38)
[2017-03-01 22:00] VITALS: BP 142/68
[2017-03-02] MEDS: HEPARIN DRIP 25,000 UNITS in APPROPRIATE DILUENT 1 EA IV SCH (01:03)
[2017-03-02 06:00] VITALS: BP 146/72
[2017-03-02 06:05] LABS: MEAN CORPUSCULAR HEMOGLOBIN 32.5 pg (27.0-33.0); MEAN CORPUSCULAR VOLUME 101.5 fl (80.0-96.0); RED CELL DISTRIBUTION WIDTH 13.2 % (11.5-14.5); WHITE BLOOD COUNT 2.6 K/mm3 (4.0-10.0)
[2017-03-02 06:23] LABS: INR 2.81
[2017-03-02 06:36] LABS: ANION GAP 1 MEQ/L (8-16); BLOOD UREA NITROGEN 23 MG/DL (7-18); CALCIUM LEVEL 8.3 MG/DL (8.8-10.2); CARBON DIOXIDE LEVEL 35 MEQ/L (21-32); CHLORIDE LEVEL 107 MEQ/L (98-107); CREATININE FOR GFR 0.97 MG/DL (0.70-1.30); GLOMERULAR FILTRATION RATE > 60.0 (>42); GLUCOSE, FASTING 127 MG/DL (83-110); SODIUM LEVEL 143 MEQ/L (136-145)
[2017-03-02] MEDS: buPROPion 75 MG TAB PO SCH ×3 (09:08→21:21)
[2017-03-02] MEDS: OMEPRAZOLE 20 MG CAP PO SCH (09:08)
[2017-03-02] MEDS: FEBUXOSTAT 40 MG TABLET (ULORIC) PO SCH (09:08)
[2017-03-02] MEDS: MULTIVITAMINS/MINERALS THERAP 1 TAB PO SCH (09:08)
[2017-03-02] MEDS: DOCUSATE SODIUM 100 MG CAP PO SCH ×2 (09:08→21:22)
[2017-03-02] MEDS: GABAPENTIN 300 MG CAP PO SCH ×3 (09:08→21:21)
[2017-03-02] MEDS: MIDODRINE 5 MG TAB PO SCH ×3 (09:08→16:08)
[2017-03-02] MEDS: FINASTERIDE 5 MG TAB PO SCH (09:09)
[2017-03-02] MEDS: CYANOCOBALAMIN 500 MCG TAB PO SCH (09:09)
[2017-03-02] MEDS: HumaLOG INSULIN (NovoLOG) PER UNIT SC SCH ×4 (09:09→21:00)
[2017-03-02] MEDS: POTASSIUM CHLORIDE 10 MEQ SR TABLET PO SCH (09:09)
[2017-03-02 14:00] VITALS: BP 148/72
[2017-03-02] MEDS: WARFARIN SOD 5 MG TAB PO SCH (16:08)
[2017-03-02] MEDS: ROSUVASTATIN 10 MG TAB (CRESTOR) PO SCH (21:21)
[2017-03-02] MEDS: traZODone 100 MG TAB PO SCH (21:21)
[2017-03-02] MEDS: TAMSULOSIN 0.4 MG CAP PO SCH (21:21)
[2017-03-02] MEDS: RAMELTEON 8 MG TAB (ROZEREM) PO SCH (21:21)
[2017-03-02] MEDS: ASPIRIN 81 MG ENTERIC TAB PO SCH (21:22)
[2017-03-02 22:00] VITALS: BP 154/68
[2017-03-03 06:00] VITALS: BP 129/60
[2017-03-03 07:15] LABS: MEAN CORPUSCULAR HEMOGLOBIN 32.8 pg (27.0-33.0); MEAN CORPUSCULAR VOLUME 99.3 fl (80.0-96.0); RED CELL DISTRIBUTION WIDTH 13.4 % (11.5-14.5); WHITE BLOOD COUNT 2.9 K/mm3 (4.0-10.0)
[2017-03-03 07:24] LABS: INR 2.98
[2017-03-03 07:37] LABS: ANION GAP 4 MEQ/L (8-16); BLOOD UREA NITROGEN 21 MG/DL (7-18); CALCIUM LEVEL 8.5 MG/DL (8.8-10.2); CARBON DIOXIDE LEVEL 31 MEQ/L (21-32); CHLORIDE LEVEL 108 MEQ/L (98-107); CREATININE FOR GFR 0.97 MG/DL (0.70-1.30); GLOMERULAR FILTRATION RATE > 60.0 (>42); GLUCOSE, FASTING 143 MG/DL (83-110); POTASSIUM SERUM 4.3 MEQ/L (3.5-5.1); SODIUM LEVEL 143 MEQ/L (136-145)
[2017-03-03] MEDS: FINASTERIDE 5 MG TAB PO SCH (08:58)
[2017-03-03] MEDS: DOCUSATE SODIUM 100 MG CAP PO SCH ×2 (08:58→22:04)
[2017-03-03] MEDS: HumaLOG INSULIN (NovoLOG) PER UNIT SC SCH ×4 (08:58→21:00)
[2017-03-03] MEDS: OMEPRAZOLE 20 MG CAP PO SCH (08:59)
[2017-03-03] MEDS: MIDODRINE 5 MG TAB PO SCH ×3 (08:59→17:04)
[2017-03-03] MEDS: GABAPENTIN 300 MG CAP PO SCH ×3 (08:59→22:05)
[2017-03-03] MEDS: MULTIVITAMINS/MINERALS THERAP 1 TAB PO SCH (08:59)
[2017-03-03] MEDS: CYANOCOBALAMIN 500 MCG TAB PO SCH (08:59)
[2017-03-03] MEDS: FEBUXOSTAT 40 MG TABLET (ULORIC) PO SCH (09:00)
[2017-03-03] MEDS: buPROPion 75 MG TAB PO SCH ×3 (09:00→22:06)
[2017-03-03] MEDS: POTASSIUM CHLORIDE 10 MEQ SR TABLET PO SCH (09:00)
[2017-03-03] MEDS: HEPARIN DRIP 25,000 UNITS in APPROPRIATE DILUENT 1 EA IV SCH (09:03)
[2017-03-03 14:00] VITALS: BP 157/65
[2017-03-03] MEDS: WARFARIN SOD 5 MG TAB PO SCH (17:03)
[2017-03-03 22:00] VITALS: BP 133/56
[2017-03-03] MEDS: ROSUVASTATIN 10 MG TAB (CRESTOR) PO SCH (22:02)
[2017-03-03] MEDS: RAMELTEON 8 MG TAB (ROZEREM) PO SCH (22:04)
[2017-03-03] MEDS: TAMSULOSIN 0.4 MG CAP PO SCH (22:04)
[2017-03-03] MEDS: ASPIRIN 81 MG ENTERIC TAB PO SCH (22:05)
[2017-03-03] MEDS: traZODone 100 MG TAB PO SCH (22:05)
[2017-03-04 06:00] VITALS: BP 143/73
[2017-03-04 06:59] LABS: INR 2.94
[2017-03-04 07:02] LABS: MEAN CORPUSCULAR HEMOGLOBIN 33.1 pg (27.0-33.0); MEAN CORPUSCULAR HGB CONC 33.3 g/dl (32.0-36.5); MEAN CORPUSCULAR VOLUME 99.3 fl (80.0-96.0); RED CELL DISTRIBUTION WIDTH 13.4 % (11.5-14.5); WHITE BLOOD COUNT 2.9 K/mm3 (4.0-10.0)
[2017-03-04 07:13] LABS: ANION GAP 4 MEQ/L (8-16); BLOOD UREA NITROGEN 21 MG/DL (7-18); CALCIUM LEVEL 8.2 MG/DL (8.8-10.2); CARBON DIOXIDE LEVEL 31 MEQ/L (21-32); CHLORIDE LEVEL 107 MEQ/L (98-107); CREATININE FOR GFR 0.92 MG/DL (0.70-1.30); GLOMERULAR FILTRATION RATE > 60.0 (>42); GLUCOSE, FASTING 116 MG/DL (83-110); POTASSIUM SERUM 4.3 MEQ/L (3.5-5.1); SODIUM LEVEL 142 MEQ/L (136-145)
[2017-03-04] MEDS ORDERED: COUM1TAB17 PO (08:16)
[2017-03-04] MEDS: HumaLOG INSULIN (NovoLOG) PER UNIT SC SCH ×2 (08:40→12:00)
[2017-03-04] MEDS: FEBUXOSTAT 40 MG TABLET (ULORIC) PO SCH (08:40)
[2017-03-04] MEDS: POTASSIUM CHLORIDE 10 MEQ SR TABLET PO SCH (08:40)
[2017-03-04] MEDS: MIDODRINE 5 MG TAB PO SCH ×2 (08:41→12:00)
[2017-03-04] MEDS: OMEPRAZOLE 20 MG CAP PO SCH (08:41)
[2017-03-04] MEDS: buPROPion 75 MG TAB PO SCH (08:41)
[2017-03-04] MEDS: DOCUSATE SODIUM 100 MG CAP PO SCH (08:41)
[2017-03-04] MEDS: MULTIVITAMINS/MINERALS THERAP 1 TAB PO SCH (08:41)
[2017-03-04] MEDS: FINASTERIDE 5 MG TAB PO SCH (08:41)
[2017-03-04] MEDS: CYANOCOBALAMIN 500 MCG TAB PO SCH (08:41)
[2017-03-04] MEDS: GABAPENTIN 300 MG CAP PO SCH (08:41)
== END 2017-03-04 12:30 | disposition home health service (06) | DRG 300 ==
LOC: EDBD 15:30 → M ED 16:39 → M ED INP 19:53 → M PCU 21:24 → M MS5PR 03-01 13:26
PROVIDERS: ADMIT Internal Medicine; ATTEND Family Medicine
DX: I82.432 Acute embolism and thrombosis of left popliteal vein (principal); I50.32 Chronic diastolic (congestive) heart failure; D61.818 Other pancytopenia; I82.412 Acute embolism and thrombosis of left femoral vein; I11.0 Hypertensive heart disease with heart failure; E11.9 Type 2 diabetes mellitus without complications; M10.9 Gout, unspecified; I25.10 Atherosclerotic heart disease of native coronary artery without angina pectoris; I95.1 Orthostatic hypotension; Z79.01 Long term (current) use of anticoagulants; Z79.899 Other long term (current) drug therapy; Z79.82 Long term (current) use of aspirin; E78.5 Hyperlipidemia, unspecified; Z79.4 Long term (current) use of insulin; Z91.018 Allergy to other foods; Z91.041 Radiographic dye allergy status; Z87.891 Personal history of nicotine dependence; F41.9 Anxiety disorder, unspecified; F32.9 Major depressive disorder, single episode, unspecified; G60.9 Hereditary and idiopathic neuropathy, unspecified

== ENCOUNTER → 2017-03-05 | Outpatient (REF) | payer MEDICARE, MEDICAID ==
[~2017-03-05] MED LIST changes: -CALCTAB43 PO; +CALCTAB74 PO; -COLA100C3 PO; +COLA100C5 PO; -COUM2.5T11 PO; +COUM2.5T17 PO; +COUM7.5T PO; +FINA5TAB2 PO; +FLOM5CAP PO; +FLUD0.1T PO; -FLUD1TA PO; +MIDO10TA PO; -NYST100024 TOP; +NYST1POW9 TOP; +PERC5TAB12 PO; -PERC5TAB6 PO; +PRESCAP6 PO; +REFR0.5D8 OU; +ROZE8TAB16 PO; -ROZE8TAB9 PO; +TRAZ-136 PO; -TRAZ100T4 PO; -ZETI10TA2 PO; +ZETI10TA30 PO
[2017-03-05 11:24] LABS: INR 3.12
== END ==
LOC: M LAB REF 10:57
PROVIDERS: ATTEND Physician Assistant Medical
DX: Z51.81 Encounter for therapeutic drug level monitoring (principal); Z79.01 Long term (current) use of anticoagulants
CPT/HCPCS: 85610; G0463

== ENCOUNTER → 2017-03-10 | Outpatient (REF) | payer MEDICARE, MEDICAID, OTHER ==
[~2017-03-10] MED LIST changes: +CALCTAB43 PO; -CALCTAB74 PO; +COLA100C3 PO; -COLA100C5 PO; +COUM2.5T11 PO; -COUM2.5T17 PO; -COUM7.5T PO; -FLUD0.1T PO; +FLUD1TA PO; +NYST100024 TOP; -NYST1POW9 TOP; -PERC5TAB12 PO; +PERC5TAB6 PO; -ROZE8TAB16 PO; +ROZE8TAB9 PO; -TRAZ-136 PO; +TRAZ100T4 PO; +ZETI10TA2 PO; -ZETI10TA30 PO
[2017-03-10 13:35] LABS: BASO % 0.9 % (0.0-1.0); EOS % 1.6 % (0.0-3.0); LARGE UNSTAINED CELL # 0.1 K/mm3 (0.0-0.4); LARGE UNSTAINED CELL % 2.9 % (0.0-4.0); LYMPH # 0.9 K/mm3 (1.5-4.5); LYMPH % 29.1 % (24.0-44.0); MEAN CORPUSCULAR HEMOGLOBIN 32.8 pg (27.0-33.0); MEAN CORPUSCULAR HGB CONC 32.8 g/dl (32.0-36.5); MONO # 0.3 K/mm3 (0.0-0.8); MONO % 9.1 % (0.0-5.0); NEUTROPHILS # 1.7 K/mm3 (1.8-7.7); NEUTROPHILS % 56.3 % (36.0-66.0); PLATELET COUNT, AUTOMATED 140 k/mm3 (150-450); RED CELL DISTRIBUTION WIDTH 13.4 % (11.5-14.5)
[2017-03-10 14:05] LABS: ANION GAP 8 MEQ/L (8-16); BLOOD UREA NITROGEN 30 MG/DL (7-18); CALCIUM LEVEL 8.6 MG/DL (8.8-10.2); CARBON DIOXIDE LEVEL 24 MEQ/L (21-32); CHLORIDE LEVEL 109 MEQ/L (98-107); CREATININE FOR GFR 0.93 MG/DL (0.70-1.30); GLOMERULAR FILTRATION RATE > 60.0 (>42); GLUCOSE, FASTING 123 MG/DL (83-110); POTASSIUM SERUM 4.7 MEQ/L (3.5-5.1); SODIUM LEVEL 141 MEQ/L (136-145)
[2017-03-10 15:33] LABS: INR 1.54
== END ==
LOC: M SHH 12:24
PROVIDERS: ATTEND Physician Assistant Medical
DX: I50.30 Unspecified diastolic (congestive) heart failure (principal); I82.409 Acute embolism and thrombosis of unspecified deep veins of unspecified lower extremity

== ENCOUNTER → 2017-03-14 | Outpatient (REF) | payer MEDICARE, MEDICAID, OTHER ==
[~2017-03-14] MED LIST changes: -CALCTAB43 PO; +CALCTAB74 PO; -COLA100C3 PO; +COLA100C5 PO; -COUM2.5T11 PO; +COUM2.5T17 PO; +COUM7.5T PO; +FLUD0.1T PO; -FLUD1TA PO; -NYST100024 TOP; +NYST1POW9 TOP; +PERC5TAB12 PO; -PERC5TAB6 PO; +ROZE8TAB16 PO; -ROZE8TAB9 PO; +TRAZ-136 PO; -TRAZ100T4 PO; -ZETI10TA2 PO; +ZETI10TA30 PO
[2017-03-14 11:11] LABS: INR 1.15
== END ==
LOC: M SHH 10:55
PROVIDERS: ATTEND Physician Assistant Medical
DX: I82.409 Acute embolism and thrombosis of unspecified deep veins of unspecified lower extremity (principal)

== ENCOUNTER → 2017-03-17 | Outpatient (REF) | payer MEDICARE ==
[2017-03-17 12:54] LABS: INR 1.1
== END ==
LOC: M SHH 11:57
PROVIDERS: ATTEND Physician Assistant Medical
DX: I82.409 Acute embolism and thrombosis of unspecified deep veins of unspecified lower extremity (principal)

== ENCOUNTER → 2017-03-19 | Outpatient (REF) | payer MEDICARE ==
[2017-03-19 15:16] LABS: INR 1.22
== END ==
LOC: M SHH 14:53
PROVIDERS: ATTEND Physician Assistant Medical
DX: I82.409 Acute embolism and thrombosis of unspecified deep veins of unspecified lower extremity (principal)

== ENCOUNTER → 2017-03-21 | Outpatient (REF) | payer MEDICARE ==
[2017-03-21 10:26] LABS: INR 1.61
== END ==
LOC: M SHH 10:08
PROVIDERS: ATTEND Physician Assistant Medical
DX: I82.409 Acute embolism and thrombosis of unspecified deep veins of unspecified lower extremity (principal)

== ENCOUNTER → 2017-03-24 | Outpatient (REF) | payer MEDICARE ==
[2017-03-24 13:01] LABS: INR 1.85
== END ==
LOC: M SHH 12:27
PROVIDERS: ATTEND Physician Assistant Medical
DX: I82.409 Acute embolism and thrombosis of unspecified deep veins of unspecified lower extremity (principal)

== ENCOUNTER → 2017-03-26 | Outpatient (REF) | payer MEDICARE ==
[2017-03-26 12:16] LABS: INR 2.29
== END ==
LOC: M SHH 11:41
PROVIDERS: ATTEND Physician Assistant Medical
DX: I82.409 Acute embolism and thrombosis of unspecified deep veins of unspecified lower extremity (principal)

== ENCOUNTER → 2017-04-24 | Outpatient (REF) | payer MEDICARE, MEDICAID, OTHER ==
[2017-04-24 12:00] LABS: INR 3.14
[2017-04-24 12:22] LABS: BASO % 0.9 % (0.0-1.0); EOS # 0.1 K/mm3 (0.0-0.50); EOS % 2.1 % (0.0-3.0); LARGE UNSTAINED CELL # 0.1 K/mm3 (0.0-0.4); LARGE UNSTAINED CELL % 1.7 % (0.0-4.0); LYMPH # 1.1 K/mm3 (1.5-4.5); LYMPH % 28.6 % (24.0-44.0); MEAN CORPUSCULAR HEMOGLOBIN 31.9 pg (27.0-33.0); MEAN CORPUSCULAR HGB CONC 32.5 g/dl (32.0-36.5); MEAN CORPUSCULAR VOLUME 98.1 fl (80.0-96.0); MONO # 0.3 K/mm3 (0.0-0.8); MONO % 7.6 % (0.0-5.0); NEUTROPHILS # 2.1 K/mm3 (1.8-7.7); NEUTROPHILS % 59.1 % (36.0-66.0); PLATELET COUNT, AUTOMATED 133 k/mm3 (150-450); RED CELL DISTRIBUTION WIDTH 13.6 % (11.5-14.5); WHITE BLOOD COUNT 3.6 K/mm3 (4.0-10.0)
[2017-04-24 12:39] LABS: ALBUMIN 2.8 GM/DL (3.2-5.2); ALBUMIN/GLOBULIN RATIO 1.04 (1.00-1.93); ALKALINE PHOSPHATASE 69 U/L (45-117); ALT/SGPT 91 U/L (12-78); ANION GAP 5 MEQ/L (8-16); AST/SGOT 95 U/L (15-37); BILIRUBIN,TOTAL 0.4 MG/DL (0.2-1.0); BLOOD UREA NITROGEN 20 MG/DL (7-18); CALCIUM LEVEL 8.1 MG/DL (8.8-10.2); CARBON DIOXIDE LEVEL 29 MEQ/L (21-32); CHLORIDE LEVEL 108 MEQ/L (98-107); CHOLESTEROL LEVEL 96 MG/DL (<200); CREATININE FOR GFR 1.06 MG/DL (0.70-1.30); GLOMERULAR FILTRATION RATE > 60.0 (>42); GLUCOSE, FASTING 108 MG/DL (83-110); POTASSIUM SERUM 4.5 MEQ/L (3.5-5.1); SODIUM LEVEL 142 MEQ/L (136-145); TOTAL PROTEIN 5.5 GM/DL (6.4-8.2); TRIGLYCERIDES LEVEL 95 MG/DL (<150)
== END ==
LOC: M SFHCPLAZ 09:40
PROVIDERS: ATTEND Family Medicine
DX: N18.3 Chronic kidney disease, stage 3 (moderate) (principal); E78.5 Hyperlipidemia, unspecified; I82.409 Acute embolism and thrombosis of unspecified deep veins of unspecified lower extremity

== ENCOUNTER → 2017-05-07 | Outpatient (REF) | payer MEDICARE, MEDICAID, OTHER ==
[2017-05-07 14:47] LABS: INR 1.82
== END ==
LOC: M LAB REF 11:45
PROVIDERS: ATTEND Physician Assistant Medical
DX: Z51.81 Encounter for therapeutic drug level monitoring (principal); Z79.01 Long term (current) use of anticoagulants

== ENCOUNTER → 2017-05-08 | Outpatient (CLI) | payer MEDICARE, MEDICAID, OTHER ==
[2017-05-08 12:07] LABS: INR 1.36
== END ==
LOC: M LAB 11:24
PROVIDERS: ATTEND Pain Medicine Interventional Pain Medicine
DX: Z51.81 Encounter for therapeutic drug level monitoring (principal); Z79.01 Long term (current) use of anticoagulants; M51.27 Other intervertebral disc displacement, lumbosacral region

== ENCOUNTER → 2017-05-09 | Outpatient (CLI) | payer MEDICARE, MEDICAID, OTHER ==
[2017-05-09 09:26] LABS: INR 1.17
== END ==
LOC: M LAB 08:47
PROVIDERS: ATTEND Pain Medicine Interventional Pain Medicine
DX: Z51.81 Encounter for therapeutic drug level monitoring (principal); Z79.01 Long term (current) use of anticoagulants; M51.27 Other intervertebral disc displacement, lumbosacral region

== ENCOUNTER → 2017-06-02 | Outpatient (CLI) | payer MEDICARE, MEDICAID ==
--- NOTE | 2017-06-02 10:05 | REP ---
Bilateral knees: Comparison is a 29, 16. Right knee four views: There is mild demineralization, unchanged. There is chondrocalcinosis suggestive of CPPD, unchanged. There are osteophytic spurs of the patella, compatible with patellofemoral osteoarthritis, unchanged. There is no joint effusion. Impression: No significant interval change. Left knee four views: There is mild demineralization, unchanged. There is chondrocalcinosis suggestive of CPPD, unchanged. There are small osteophytic spurs of the patella compatible with patellofemoral osteoarthritis, unchanged. There is no joint effusion. Impression: There is no significant interval change. Signed by Ming Qiu MD 06/02/2017 09:56 A
--- NOTE | 2017-06-02 10:06 | REP ---
Bilateral knees, single AP view with the patient standing: There is bilateral chondrocalcinosis suggestive of CPPD. There is mild joint space narrowing of the medial compartments bilaterally compatible with articular cartilage atrophy. The lateral compartments demonstrate no joint space narrowing. There is mild demineralization bilaterally. There are surgical clips in the soft tissues posteromedially on the left. This is unchanged. Signed by Ming Qiu MD 06/02/2017 09:58 A
== END ==
LOC: M RAD 08:19
PROVIDERS: ATTEND Family Medicine
DX: M17.0 Bilateral primary osteoarthritis of knee (principal)

== ENCOUNTER 2017-06-09 06:51 | Emergency (ER) | payer MEDICARE, MEDICAID ==
[~2017-06-09] VITALS: Ht 170.2 cm; Wt 65.9 kg
[~2017-06-09 06:51] MED LIST changes: -COUM7.5T PO
[2017-06-09] MEDS ORDERED: COUM7.5T PO (07:01)
[2017-06-09 07:54] LABS: BASO % 0.4 % (0.0-1.0); EOS # 0.1 K/mm3 (0.0-0.50); EOS % 1.3 % (0.0-3.0); LARGE UNSTAINED CELL # 0.1 K/mm3 (0.0-0.4); LARGE UNSTAINED CELL % 1.3 % (0.0-4.0); LYMPH # 0.9 K/mm3 (1.5-4.5); LYMPH % 17.7 % (24.0-44.0); MEAN CORPUSCULAR HEMOGLOBIN 31.4 pg (27.0-33.0); MEAN CORPUSCULAR HGB CONC 33.2 g/dl (32.0-36.5); MEAN CORPUSCULAR VOLUME 94.6 fl (80.0-96.0); MONO # 0.2 K/mm3 (0.0-0.8); MONO % 4.4 % (0.0-5.0); NEUTROPHILS % 74.9 % (36.0-66.0); PLATELET COUNT, AUTOMATED 169 k/mm3 (150-450); RED CELL DISTRIBUTION WIDTH 13.7 % (11.5-14.5); WHITE BLOOD COUNT 5.3 K/mm3 (4.0-10.0)
[2017-06-09 08:10] LABS: INR 4.7
[2017-06-09 08:37] VITALS: BP 112/71
== END 2017-06-09 10:04 | disposition home or self-care (01) ==
LOC: M ED 06:51 → EDBD 06:51 → M ED 10:04
DX: S80.812A Abrasion, left lower leg, initial encounter (principal); W22.8XXA Striking against or struck by other objects, initial encounter; Y92.019 Unspecified place in single-family (private) house as the place of occurrence of the external cause; Y93.02 Activity, running; Y99.8 Other external cause status; R79.1 Abnormal coagulation profile; J45.909 Unspecified asthma, uncomplicated; N18.4 Chronic kidney disease, stage 4 (severe); E11.9 Type 2 diabetes mellitus without complications; G47.30 Sleep apnea, unspecified; E21.3 Hyperparathyroidism, unspecified; K76.0 Fatty (change of) liver, not elsewhere classified; G90.09 Other idiopathic peripheral autonomic neuropathy; F33.9 Major depressive disorder, recurrent, unspecified; F41.9 Anxiety disorder, unspecified; N40.0 Benign prostatic hyperplasia without lower urinary tract symptoms; Z79.01 Long term (current) use of anticoagulants; Z79.899 Other long term (current) drug therapy; Z79.82 Long term (current) use of aspirin; Z79.4 Long term (current) use of insulin; Z91.041 Radiographic dye allergy status; Z91.018 Allergy to other foods

== ENCOUNTER → 2017-07-08 | Outpatient (REF) | payer MEDICARE, MEDICAID ==
[~2017-07-08] MED LIST changes: +COUM7.5T PO
[2017-07-08 12:04] LABS: BASO % 0.4 % (0.0-1.0); EOS # 0.1 10^3/uL (0.0-0.50); IMMATURE GRANULOCYTE % 0.2 % (0-0); LYMPH # 0.8 10^3/uL (1.5-4.5); MEAN CORPUSCULAR HEMOGLOBIN 30.2 pg (27.0-33.0); MEAN CORPUSCULAR HGB CONC 30.4 g/dl (32.0-36.5); MEAN CORPUSCULAR VOLUME 99.2 fl (80.0-96.0); MONO # 0.3 10^3/uL (0.0-0.8); MONO % 6.1 % (0.0-5.0); NEUTROPHILS # 3.9 10^3/uL (1.8-7.7); NEUTROPHILS % 77.3 % (36.0-66.0); PLATELET COUNT, AUTOMATED 153 10^3/uL (150-450); WHITE BLOOD COUNT 5.1 10^3/uL (4.0-10.0)
[2017-07-08 12:18] LABS: INR 2.16
[2017-07-08 12:27] LABS: ALKALINE PHOSPHATASE 68 U/L (45-117); ALT/SGPT 47 U/L (12-78); ANION GAP 8 MEQ/L (8-16); AST/SGOT 33 U/L (15-37); BILIRUBIN,TOTAL 0.4 MG/DL (0.2-1.0); BLOOD UREA NITROGEN 18 MG/DL (7-18); CALCIUM LEVEL 8.7 MG/DL (8.8-10.2); CARBON DIOXIDE LEVEL 29 MEQ/L (21-32); CHLORIDE LEVEL 106 MEQ/L (98-107); CREATININE FOR GFR 1.03 MG/DL (0.70-1.30); FERRITIN 47 NG/ML (26-388); FREE T4 1.11 NG/DL (0.76-1.46); GLOMERULAR FILTRATION RATE > 60.0 (>42); GLUCOSE, FASTING 145 MG/DL (83-110); PERCENT SATURATION 14.3 % (19.7-50.0); POTASSIUM SERUM 4.5 MEQ/L (3.5-5.1); SODIUM LEVEL 143 MEQ/L (136-145); TOTAL IRON BINDING CAPACITY 251 UG/DL (250-450); TOTAL PROTEIN 5.5 GM/DL (6.4-8.2)
== END ==
LOC: M SFHCPLAZ 07:33
PROVIDERS: ATTEND Family Medicine
DX: N40.1 Benign prostatic hyperplasia with lower urinary tract symptoms (principal); E53.8 Deficiency of other specified B group vitamins; E55.9 Vitamin D deficiency, unspecified; E04.2 Nontoxic multinodular goiter; I82.409 Acute embolism and thrombosis of unspecified deep veins of unspecified lower extremity; E11.40 Type 2 diabetes mellitus with diabetic neuropathy, unspecified
CPT/HCPCS: 11042; 36415; 80053; 82306; 82728; 83036; 83550; 83970; 84439; 84443; 85025; 85610; 85730; G0103

== ENCOUNTER → 2017-07-25 | Outpatient (CLI) | payer MEDICARE, OTHER | LOC: M LAB 09:18 | PROVIDERS: ATTEND Nurse Practitioner Family | DX: M51.27 Other intervertebral disc displacement, lumbosacral region (principal); M48.061 Spinal stenosis, lumbar region without neurogenic claudication; M54.16 Radiculopathy, lumbar region; M47.817 Spondylosis without myelopathy or radiculopathy, lumbosacral region ==

== ENCOUNTER → 2017-08-28 | Outpatient (CLI) | payer MEDICARE ==
[2017-08-28 07:19] LABS: INR 1.07
== END ==
LOC: M LAB 06:17
PROVIDERS: ATTEND Nurse Practitioner Family
DX: M51.27 Other intervertebral disc displacement, lumbosacral region (principal); M48.061 Spinal stenosis, lumbar region without neurogenic claudication; M54.16 Radiculopathy, lumbar region; M47.817 Spondylosis without myelopathy or radiculopathy, lumbosacral region; Z79.899 Other long term (current) drug therapy; Z79.01 Long term (current) use of anticoagulants

== ENCOUNTER 2017-09-09 17:43 | Observation (INO) | payer MEDICARE, MEDICAID ==
[2017-09-09 18:58] LABS: BASO % 0.5 % (0.0-1.0); EOS % 0.7 % (0.0-3.0); IMMATURE GRANULOCYTE % 0.2 % (0-0); LYMPH # 1.2 10^3/uL (1.5-4.5); LYMPH % 28.8 % (24.0-44.0); MEAN CORPUSCULAR HEMOGLOBIN 29.7 pg (27.0-33.0); MEAN CORPUSCULAR HGB CONC 31.6 g/dl (32.0-36.5); MEAN CORPUSCULAR VOLUME 93.9 fl (80.0-96.0); MONO # 0.4 10^3/uL (0.0-0.8); NEUTROPHILS # 2.6 10^3/uL (1.8-7.7); NEUTROPHILS % 60.8 % (36.0-66.0); PLATELET COUNT, AUTOMATED 142 10^3/uL (150-450); RED CELL DISTRIBUTION WIDTH 13.4 % (11.5-14.5); WHITE BLOOD COUNT 4.2 10^3/uL (4.0-10.0)
[2017-09-09 20:21] LABS: ANION GAP 6 MEQ/L (8-16); BLOOD UREA NITROGEN 39 MG/DL (7-18); CALCIUM LEVEL 7.9 MG/DL (8.8-10.2); CARBON DIOXIDE LEVEL 26 MEQ/L (21-32); CHLORIDE LEVEL 111 MEQ/L (98-107); CREATININE FOR GFR 2.07 MG/DL (0.70-1.30); GLOMERULAR FILTRATION RATE 33.6 (>42); GLUCOSE, FASTING 116 MG/DL (83-110); SODIUM LEVEL 143 MEQ/L (136-145)
[2017-09-09 20:22] LABS: POTASSIUM SERUM 5.4 MEQ/L (3.5-5.1)
[2017-09-09] MEDS: ASPIRIN 81 MG CHEW TABLET PO (21:00)
[2017-09-09] MEDS: RAMELTEON 8 MG TAB (ROZEREM) PO (21:00)
[2017-09-09] MEDS: ROSUVASTATIN 10 MG TAB (CRESTOR) PO (21:00)
[2017-09-09] MEDS: traZODone 100 MG TAB PO (21:00)
[2017-09-09] MEDS: TAMSULOSIN 0.4 MG CAP PO (21:00)
[2017-09-09] MEDS: HumaLOG INSULIN (NovoLOG) PER UNIT SC (21:00)
[2017-09-09 22:38] LABS: ANION GAP 6 MEQ/L (8-16); BLOOD UREA NITROGEN 39 MG/DL (7-18); CALCIUM LEVEL 8.2 MG/DL (8.8-10.2); CARBON DIOXIDE LEVEL 27 MEQ/L (21-32); CHLORIDE LEVEL 110 MEQ/L (98-107); CREATININE FOR GFR 1.78 MG/DL (0.70-1.30); GLUCOSE, FASTING 92 MG/DL (83-110); POTASSIUM SERUM 4.8 MEQ/L (3.5-5.1); SODIUM LEVEL 143 MEQ/L (136-145)
[2017-09-09 23:44] LABS: INR 2.05
[2017-09-10] MEDS ORDERED: GLUCAGON FOR INJ 1 MG VIAL (J1610) SC
[2017-09-10] MEDS ORDERED: GLUCOSE 4 GM CHEW TABLET PO
[2017-09-10] MEDS ORDERED: DEXTROSE 50% 50 ML SYRINGE IV
[2017-09-10] MEDS: HumaLOG INSULIN (NovoLOG) PER UNIT SC ×2 (07:30→12:00)
[2017-09-10 07:32] LABS: MEAN CORPUSCULAR HEMOGLOBIN 30.1 pg (27.0-33.0); MEAN CORPUSCULAR HGB CONC 31.9 g/dl (32.0-36.5); MEAN CORPUSCULAR VOLUME 94.3 fl (80.0-96.0); PLATELET COUNT, AUTOMATED 119 10^3/uL (150-450); RED CELL DISTRIBUTION WIDTH 13.5 % (11.5-14.5); WHITE BLOOD COUNT 3.9 10^3/uL (4.0-10.0)
[2017-09-10 08:13] LABS: ANION GAP 6 MEQ/L (8-16); BLOOD UREA NITROGEN 35 MG/DL (7-18); CALCIUM LEVEL 8.4 MG/DL (8.8-10.2); CARBON DIOXIDE LEVEL 29 MEQ/L (21-32); CHLORIDE LEVEL 108 MEQ/L (98-107); CREATININE FOR GFR 1.36 MG/DL (0.70-1.30); GLOMERULAR FILTRATION RATE 54.5 (>42); GLUCOSE, FASTING 78 MG/DL (83-110); POTASSIUM SERUM 4.6 MEQ/L (3.5-5.1); SODIUM LEVEL 143 MEQ/L (136-145)
[2017-09-10] MEDS: OMEPRAZOLE 20 MG CAP PO (08:58)
[2017-09-10] MEDS: DOCUSATE SODIUM 100 MG CAP PO (08:58)
[2017-09-10] MEDS: MIDODRINE 5 MG TAB PO ×2 (08:59→12:00)
[2017-09-10] MEDS: CYANOCOBALAMIN 500 MCG TAB PO (08:59)
[2017-09-10] MEDS: OCUVITE 1 TAB PO (08:59)
[2017-09-10] MEDS: FINASTERIDE 5 MG TAB PO (08:59)
[2017-09-10] MEDS: CALCIUM/VITAMIN D 500 MG TAB PO (08:59)
[2017-09-10] MEDS ORDERED: buPROPion 75 MG TAB PO (09:00)
[2017-09-10] MEDS ORDERED: CALCIUM/VITAMIN D 500 MG TAB PO (09:00)
[2017-09-10] MEDS: MULTIVITAMINS/MINERALS THERAP 1 TAB PO (09:00)
[2017-09-10] MEDS ORDERED: WARFARIN SOD 7.5 MG TAB PO (17:00)
== END 2017-09-10 13:21 | disposition home or self-care (01) ==
LOC: M ED 17:43 → M ED INP 22:55
DX: I13.0 Hypertensive heart and chronic kidney disease with heart failure and stage 1 through stage 4 chronic kidney disease, or unspecified chronic kidney disease (principal); N18.3 Chronic kidney disease, stage 3 (moderate); R00.1 Bradycardia, unspecified; D50.9 Iron deficiency anemia, unspecified; I82.409 Acute embolism and thrombosis of unspecified deep veins of unspecified lower extremity; I50.32 Chronic diastolic (congestive) heart failure; E11.22 Type 2 diabetes mellitus with diabetic chronic kidney disease; M10.9 Gout, unspecified; I25.10 Atherosclerotic heart disease of native coronary artery without angina pectoris; E78.5 Hyperlipidemia, unspecified; G89.29 Other chronic pain; I95.1 Orthostatic hypotension; R79.89 Other specified abnormal findings of blood chemistry; R94.31 Abnormal electrocardiogram [ECG] [EKG]; Z95.1 Presence of aortocoronary bypass graft; Z79.4 Long term (current) use of insulin; Z91.018 Allergy to other foods; Z91.041 Radiographic dye allergy status; Z79.82 Long term (current) use of aspirin; Z79.899 Other long term (current) drug therapy; Z79.01 Long term (current) use of anticoagulants
CPT/HCPCS: 71010

== ENCOUNTER → 2017-09-09 | Outpatient (REF) | payer MEDICARE, MEDICAID ==
[~2017-09-09] MED LIST changes: +ASPI81CH PO; +GABA600T PO; +OCUVTAB PO; +OMEP20CA3 PO; +POTA20TA PO
[2017-09-09 11:26] LABS: BASO % 0.3 % (0.0-1.0); EOS % 0.5 % (0.0-3.0); IMMATURE GRANULOCYTE % 0.3 % (0-0); LYMPH # 1.1 10^3/uL (1.5-4.5); LYMPH % 28.6 % (24.0-44.0); MEAN CORPUSCULAR HEMOGLOBIN 29.6 pg (27.0-33.0); MEAN CORPUSCULAR HGB CONC 31.2 g/dl (32.0-36.5); MONO # 0.3 10^3/uL (0.0-0.8); MONO % 8.4 % (0.0-5.0); NEUTROPHILS # 2.3 10^3/uL (1.8-7.7); NEUTROPHILS % 61.9 % (36.0-66.0); PLATELET COUNT, AUTOMATED 137 10^3/uL (150-450); RED CELL DISTRIBUTION WIDTH 13.7 % (11.5-14.5); RETIC HEMOGLOBIN EQUIVALENT 33.8 pg (24-36); RETICULOCYTE % 1.2 % (0.5-1.5); WHITE BLOOD COUNT 3.7 10^3/uL (4.0-10.0)
[2017-09-09 11:39] LABS: INR 2.23
[2017-09-09 11:41] LABS: ANION GAP 4 MEQ/L (8-16); BLOOD UREA NITROGEN 31 MG/DL (7-18); CALCIUM LEVEL 7.8 MG/DL (8.8-10.2); CARBON DIOXIDE LEVEL 31 MEQ/L (21-32); CHLORIDE LEVEL 108 MEQ/L (98-107); CREATININE FOR GFR 1.09 MG/DL (0.70-1.30); FERRITIN 33 NG/ML (26-388); GLOMERULAR FILTRATION RATE > 60.0 (>42); GLUCOSE, FASTING 78 MG/DL (83-110); PERCENT SATURATION 19.1 % (19.7-50.0); PHOSPHORUS LEVEL 2.5 MG/DL (2.5-4.9); POTASSIUM SERUM 4.2 MEQ/L (3.5-5.1); SODIUM LEVEL 143 MEQ/L (136-145); TOTAL IRON BINDING CAPACITY 278 UG/DL (250-450)
== END ==
LOC: M SFHCPLAZ 08:11
PROVIDERS: ATTEND Family Medicine
DX: N18.3 Chronic kidney disease, stage 3 (moderate) (principal); D50.9 Iron deficiency anemia, unspecified; I82.409 Acute embolism and thrombosis of unspecified deep veins of unspecified lower extremity

== ENCOUNTER → 2017-09-11 | Outpatient (REF) | payer MEDICARE, MEDICAID ==
[2017-09-11 18:18] LABS: ANION GAP 6 MEQ/L (8-16); BLOOD UREA NITROGEN 37 MG/DL (7-18); CALCIUM LEVEL 8.2 MG/DL (8.8-10.2); CARBON DIOXIDE LEVEL 29 MEQ/L (21-32); CHLORIDE LEVEL 108 MEQ/L (98-107); CREATININE FOR GFR 0.97 MG/DL (0.70-1.30); GLOMERULAR FILTRATION RATE > 60.0 (>42); GLUCOSE, FASTING 59 MG/DL (83-110); MAGNESIUM LEVEL 2.1 MG/DL (1.8-2.4); POTASSIUM SERUM 4.2 MEQ/L (3.5-5.1); SODIUM LEVEL 143 MEQ/L (136-145)
== END ==
LOC: M SFHCPLAZ 17:24
PROVIDERS: ATTEND Physician Assistant Medical
DX: I50.30 Unspecified diastolic (congestive) heart failure (principal); I25.10 Atherosclerotic heart disease of native coronary artery without angina pectoris; N18.3 Chronic kidney disease, stage 3 (moderate)

== ENCOUNTER 2017-09-26 11:24 | Emergency (ER) | payer MEDICARE, MEDICAID ==
[2017-09-26 12:31] LABS: BASO % 0.5 % (0.0-1.0); EOS % 0.8 % (0.0-3.0); HEMOGLOBIN 12.2 g/dl (14.0-18.0); IMMATURE GRANULOCYTE % 0.3 % (0-0); MEAN CORPUSCULAR HEMOGLOBIN 29.6 pg (27.0-33.0); MEAN CORPUSCULAR HGB CONC 32.1 g/dl (32.0-36.5); MEAN CORPUSCULAR VOLUME 92.2 fl (80.0-96.0); MONO # 0.3 10^3/uL (0.0-0.8); MONO % 7.9 % (0.0-5.0); NEUTROPHILS # 2.4 10^3/uL (1.8-7.7); NEUTROPHILS % 64.5 % (36.0-66.0); PLATELET COUNT, AUTOMATED 131 10^3/uL (150-450); RED BLOOD COUNT 4.12 10^6/uL (4.30-6.10); WHITE BLOOD COUNT 3.7 10^3/uL (4.0-10.0)
[2017-09-26 12:48] LABS: LACTIC ACID SEPSIS PROTOCOL 0.9 MMOL/L (0.4-2.0)
[2017-09-26 12:50] LABS: ALT/SGPT 43 U/L (12-78); ANION GAP 6 MEQ/L (8-16); AST/SGOT 36 U/L (7-37); BLOOD UREA NITROGEN 20 MG/DL (7-18); CALCIUM LEVEL 8.5 MG/DL (8.8-10.2); CARBON DIOXIDE LEVEL 28 MEQ/L (21-32); CHLORIDE LEVEL 107 MEQ/L (98-107); CREATININE FOR GFR 1.05 MG/DL (0.70-1.30); GLOMERULAR FILTRATION RATE > 60.0 (>42); GLUCOSE, FASTING 125 MG/DL (83-110); POTASSIUM SERUM 4.1 MEQ/L (3.5-5.1); SODIUM LEVEL 141 MEQ/L (136-145)
[2017-09-26 12:51] LABS: ALBUMIN 3.3 GM/DL (3.2-5.2); ALBUMIN/GLOBULIN RATIO 1.27 (1.00-1.93); ALKALINE PHOSPHATASE 77 U/L (45-117); BILIRUBIN,DIRECT 0.1 MG/DL (0.0-0.2); BILIRUBIN,TOTAL 0.3 MG/DL (0.2-1.0); CPK CREATINE PHOSPHOKINASE 78 U/L (39-308); MAGNESIUM LEVEL 2.2 MG/DL (1.8-2.4); TOTAL PROTEIN 5.9 GM/DL (6.4-8.2); TROPONIN I 0.13 NG/ML (< 0.10)
[2017-09-26 12:56] LABS: MB/CK RELATIVE INDEX 1.28 (< OR =4); NT-PRO BNP 11950 PG/ML (<125)
[2017-09-26 13:05] LABS: INR 2.85; PROTHROMBIN TIME 31.2 SECONDS (12.4-14.5)
[2017-09-26] MEDS: FUROSEMIDE 40 MG/4 ML VIAL (J1940) IV ×2 (15:09)
[2017-09-26 15:26] LABS: CPK CREATINE PHOSPHOKINASE 66 U/L (39-308); TROPONIN I 0.13 NG/ML (< 0.10)
[2017-09-26 15:27] LABS: CK-MB VALUE MASS 1.1 NG/ML (0.0-3.6); MB/CK RELATIVE INDEX 1.66 (< OR =4)
== END 2017-09-26 16:41 | disposition home or self-care (01) ==
LOC: M ED 11:24
DX: I50.30 Unspecified diastolic (congestive) heart failure (principal); R00.1 Bradycardia, unspecified; I95.1 Orthostatic hypotension; N40.1 Benign prostatic hyperplasia with lower urinary tract symptoms; Z95.1 Presence of aortocoronary bypass graft; Z86.718 Personal history of other venous thrombosis and embolism; Z79.01 Long term (current) use of anticoagulants; Z79.899 Other long term (current) drug therapy; Z98.84 Bariatric surgery status
CPT/HCPCS: J1940

== ENCOUNTER → 2017-10-01 | Outpatient (CLI) | payer MEDICARE, MEDICAID ==
[2017-10-01 09:49] LABS: ALBUMIN 3.2 GM/DL (3.2-5.2); ALBUMIN/GLOBULIN RATIO 1.28 (1.00-1.93); ALKALINE PHOSPHATASE 70 U/L (45-117); ALT/SGPT 36 U/L (12-78); ANION GAP 6 MEQ/L (8-16); AST/SGOT 35 U/L (7-37); BILIRUBIN,TOTAL 0.3 MG/DL (0.2-1.0); BLOOD UREA NITROGEN 37 MG/DL (7-18); CALCIUM LEVEL 8.1 MG/DL (8.8-10.2); CARBON DIOXIDE LEVEL 30 MEQ/L (21-32); CHLORIDE LEVEL 105 MEQ/L (98-107); CREATININE FOR GFR 1.34 MG/DL (0.70-1.30); GLOMERULAR FILTRATION RATE 55.5 (>42); GLUCOSE, FASTING 103 MG/DL (83-110); IRON (FE) 49 UG/DL (65-175); POTASSIUM SERUM 4.2 MEQ/L (3.5-5.1); SODIUM LEVEL 141 MEQ/L (136-145); TOTAL PROTEIN 5.7 GM/DL (6.4-8.2)
== END ==
LOC: M LAB 08:25
DX: K90.9 Intestinal malabsorption, unspecified (principal)

== ENCOUNTER → 2017-10-01 | Outpatient (CLI) | payer MEDICARE, MEDICAID ==
[2017-10-01 09:24] LABS: BASO % 0.6 % (0.0-1.0); EOS % 0.6 % (0.0-3.0); HEMATOCRIT 37.5 % (42.0-52.0); HEMOGLOBIN 12.1 g/dl (14.0-18.0); LYMPH # 0.9 10^3/uL (1.5-4.5); LYMPH % 19.7 % (24.0-44.0); MEAN CORPUSCULAR HEMOGLOBIN 29.9 pg (27.0-33.0); MEAN CORPUSCULAR HGB CONC 32.3 g/dl (32.0-36.5); MEAN CORPUSCULAR VOLUME 92.6 fl (80.0-96.0); MONO # 0.3 10^3/uL (0.0-0.8); NEUTROPHILS # 3.4 10^3/uL (1.8-7.7); NEUTROPHILS % 72.1 % (36.0-66.0); PLATELET COUNT, AUTOMATED 133 10^3/uL (150-450); RED BLOOD COUNT 4.05 10^6/uL (4.30-6.10); RED CELL DISTRIBUTION WIDTH 13.9 % (11.5-14.5); WHITE BLOOD COUNT 4.7 10^3/uL (4.0-10.0)
[2017-10-01 09:49] LABS: C REACTIVE PROTEIN QUANTITATIV < 0.30 MG/DL (0.00-0.30)
[2017-10-01 10:31] LABS: ERYTHROCYTE SEDIMENTATION RATE 12 mm/hr (0-20)
== END ==
LOC: M LAB 08:19
DX: R78.81 Bacteremia (principal); K90.9 Intestinal malabsorption, unspecified
CPT/HCPCS: 83540

== ENCOUNTER 2017-10-09 09:51 | Emergency (ER) | payer MEDICARE, MEDICAID ==
[2017-10-09 10:35] LABS: VENOUS BASE EXCESS 5.7 (-2.0-2.0); VENOUS HCO3 32.6 MEQ/L (23.0-27.0); VENOUS O2 SATURATION 71.1 % (60.0-80.0); VENOUS PARTIAL PRESSURE CO2 58.7 mmHg (38.0-50.0); VENOUS PARTIAL PRESSURE O2 38.3 mmHg (30.0-50.0); VENOUS PH 7.363 UNITS (7.330-7.430); VENOUS STANDARD HCO3 29.1 MEQ/L; VENOUS TOTAL CO2 34.4 MEQ/L (24.0-28.0)
[2017-10-09] MEDS: NS 1,000 ML IV (10:36)
[2017-10-09 10:37] LABS: BASO % 0.3 % (0.0-1.0); EOS % 1.1 % (0.0-3.0); HEMATOCRIT 38.2 % (42.0-52.0); HEMOGLOBIN 12.1 g/dl (14.0-18.0); IMMATURE GRANULOCYTE % 0.3 % (0-0); LYMPH % 27.3 % (24.0-44.0); MEAN CORPUSCULAR HEMOGLOBIN 29.5 pg (27.0-33.0); MEAN CORPUSCULAR HGB CONC 31.7 g/dl (32.0-36.5); MEAN CORPUSCULAR VOLUME 93.2 fl (80.0-96.0); MONO # 0.3 10^3/uL (0.0-0.8); MONO % 6.8 % (0.0-5.0); NEUTROPHILS # 2.4 10^3/uL (1.8-7.7); NEUTROPHILS % 64.2 % (36.0-66.0); PLATELET COUNT, AUTOMATED 113 10^3/uL (150-450); RED CELL DISTRIBUTION WIDTH 13.9 % (11.5-14.5); WHITE BLOOD COUNT 3.7 10^3/uL (4.0-10.0)
[2017-10-09 10:46] LABS: INR 2.65; PROTHROMBIN TIME 29.4 SECONDS (12.4-14.5)
[2017-10-09 11:01] LABS: ALBUMIN 3.1 GM/DL (3.2-5.2); ALBUMIN/GLOBULIN RATIO 1.24 (1.00-1.93); ALKALINE PHOSPHATASE 59 U/L (45-117); ALT/SGPT 38 U/L (12-78); ANION GAP 7 MEQ/L (8-16); AST/SGOT 38 U/L (7-37); BILIRUBIN,DIRECT 0.2 MG/DL (0.0-0.2); BILIRUBIN,TOTAL 0.3 MG/DL (0.2-1.0); BLOOD UREA NITROGEN 30 MG/DL (7-18); CALCIUM LEVEL 8.2 MG/DL (8.8-10.2); CARBON DIOXIDE LEVEL 31 MEQ/L (21-32); CHLORIDE LEVEL 106 MEQ/L (98-107); CPK CREATINE PHOSPHOKINASE 53 U/L (39-308); CREATININE FOR GFR 1.57 MG/DL (0.70-1.30); GLOMERULAR FILTRATION RATE 46.2 (>42); GLUCOSE, FASTING 167 MG/DL (70-100); POTASSIUM SERUM 4.2 MEQ/L (3.5-5.1); SODIUM LEVEL 144 MEQ/L (136-145); TOTAL PROTEIN 5.6 GM/DL (6.4-8.2); TROPONIN I 0.09 NG/ML (< 0.10)
[2017-10-09 11:07] LABS: MB/CK RELATIVE INDEX 1.88 (< OR =4); NT-PRO BNP 3210 PG/ML (<125)
[2017-10-09 11:43] LABS: MAGNESIUM LEVEL 2.3 MG/DL (1.8-2.4)
== END 2017-10-09 13:27 | disposition short-term general hospital (02) ==
LOC: M ED 09:51
DX: R00.1 Bradycardia, unspecified (principal); R06.02 Shortness of breath; I44.7 Left bundle-branch block, unspecified; I49.3 Ventricular premature depolarization; I11.0 Hypertensive heart disease with heart failure; I50.9 Heart failure, unspecified; I25.10 Atherosclerotic heart disease of native coronary artery without angina pectoris; E11.9 Type 2 diabetes mellitus without complications; I87.309 Chronic venous hypertension (idiopathic) without complications of unspecified lower extremity; Z95.1 Presence of aortocoronary bypass graft; Z91.041 Radiographic dye allergy status; Z91.018 Allergy to other foods; Z79.899 Other long term (current) drug therapy; Z79.4 Long term (current) use of insulin; Z79.01 Long term (current) use of anticoagulants; Z79.82 Long term (current) use of aspirin
CPT/HCPCS: 71045

== ENCOUNTER → 2017-10-16 | Outpatient (REF) | payer MEDICARE, MEDICAID ==
[2017-10-16 15:42] LABS: HEMOGLOBIN 10.4 g/dl (14.0-18.0); MEAN CORPUSCULAR HEMOGLOBIN 29.8 pg (27.0-33.0); MEAN CORPUSCULAR HGB CONC 31.5 g/dl (32.0-36.5); MEAN CORPUSCULAR VOLUME 94.6 fl (80.0-96.0); PLATELET COUNT, AUTOMATED 116 10^3/uL (150-450); RED BLOOD COUNT 3.49 10^6/uL (4.30-6.10); RED CELL DISTRIBUTION WIDTH 14.2 % (11.5-14.5); WHITE BLOOD COUNT 9.2 10^3/uL (4.0-10.0)
== END ==
LOC: M LAB REF 14:08
DX: Z79.01 Long term (current) use of anticoagulants (principal)
CPT/HCPCS: 85027

== ENCOUNTER 2017-10-19 05:39 | Inpatient (IN) | payer MEDICARE, MEDICAID ==
[2017-10-19 06:34] LABS: BASO % 0.3 % (0.0-1.0); EOS # 0.1 10^3/uL (0.0-0.50); EOS % 1.5 % (0.0-3.0); HEMATOCRIT 33.4 % (42.0-52.0); HEMOGLOBIN 10.6 g/dl (14.0-18.0); IMMATURE GRANULOCYTE % 0.3 % (0-0); LYMPH # 0.9 10^3/uL (1.5-4.5); LYMPH % 23.5 % (24.0-44.0); MEAN CORPUSCULAR HEMOGLOBIN 29.7 pg (27.0-33.0); MEAN CORPUSCULAR HGB CONC 31.7 g/dl (32.0-36.5); MEAN CORPUSCULAR VOLUME 93.6 fl (80.0-96.0); MONO # 0.3 10^3/uL (0.0-0.8); MONO % 7.8 % (0.0-5.0); NEUTROPHILS # 2.6 10^3/uL (1.8-7.7); NEUTROPHILS % 66.6 % (36.0-66.0); PLATELET COUNT, AUTOMATED 124 10^3/uL (150-450); RED BLOOD COUNT 3.57 10^6/uL (4.30-6.10); RED CELL DISTRIBUTION WIDTH 13.8 % (11.5-14.5)
[2017-10-19 06:46] LABS: INR 1.59; PARTIAL THROMBOPLASTIN TIME 37.4 SECONDS (26.8-37.9); PROTHROMBIN TIME 19.4 SECONDS (12.4-14.5)
[2017-10-19 06:58] LABS: ANION GAP 6 MEQ/L (8-16); BLOOD UREA NITROGEN 30 MG/DL (7-18); CALCIUM LEVEL 8.4 MG/DL (8.8-10.2); CARBON DIOXIDE LEVEL 32 MEQ/L (21-32); CHLORIDE LEVEL 104 MEQ/L (98-107); CREATININE FOR GFR 1.11 MG/DL (0.70-1.30); GLOMERULAR FILTRATION RATE > 60.0 (>42); GLUCOSE, FASTING 149 MG/DL (70-100); POTASSIUM SERUM 4.1 MEQ/L (3.5-5.1); SODIUM LEVEL 142 MEQ/L (136-145)
[2017-10-19 06:59] LABS: CPK CREATINE PHOSPHOKINASE 52 U/L (39-308); TROPONIN I 0.09 NG/ML (< 0.10)
[2017-10-19 07:03] LABS: ETHYL ALCOHOL (ETHANOL) < 0.003 % (0.000-0.010)
[2017-10-19 07:04] LABS: MB/CK RELATIVE INDEX 1.92 (< OR =4)
[2017-10-19] MEDS: TETANUS/DIPHTHERIA TOX ADSORB ADULT 0.5ML SYR/VIAL (90714) IM (07:16)
[2017-10-19] MEDS: OMEPRAZOLE 20 MG CAP PO (11:48)
[2017-10-19] MEDS ORDERED: DEXTROSE 50% 50 ML SYRINGE IV (12:30)
[2017-10-19] MEDS ORDERED: GLUCOSE 4 GM CHEW TABLET PO (12:30)
[2017-10-19] MEDS ORDERED: GLUCAGON FOR INJ 1 MG VIAL (J1610) SC (12:30)
[2017-10-19] MEDS: FEBUXOSTAT 40 MG TABLET (ULORIC) PO (13:02)
[2017-10-19] MEDS: FINASTERIDE 5 MG TAB PO (13:02)
[2017-10-19] MEDS: LISINOPRIL *2.5 MG* TAB PO (13:03)
[2017-10-19] MEDS ORDERED: ACETAMINOPHEN TAB 650MG DOSE (2X325MG) PO (15:15)
[2017-10-19] MEDS: FUROSEMIDE 20 MG TAB PO (16:23)
[2017-10-19] MEDS: buPROPion 75 MG TAB PO ×2 (16:23→20:32)
[2017-10-19] MEDS: WARFARIN SOD 5 MG TAB PO (16:23)
[2017-10-19] MEDS: GABAPENTIN 300 MG CAP PO ×2 (16:23→20:32)
[2017-10-19 16:55] LABS: BEDSIDE GLUCOSE 248 MG/DL (83-110)
[2017-10-19 16:58] LABS: BEDSIDE GLUCOSE 135 MG/DL (83-110)
[2017-10-19] MEDS: HumaLOG INSULIN (NovoLOG) PER UNIT SC ×2 (17:25→20:11)
[2017-10-19] MEDS: MIDODRINE 5 MG TAB PO (17:26)
[2017-10-19] MEDS: DOCUSATE SODIUM 100 MG CAP PO (20:32)
[2017-10-19] MEDS: traZODone 100 MG TAB PO (20:32)
[2017-10-19] MEDS: ATORVASTATIN 20 MG TAB PO (20:32)
[2017-10-19] MEDS: RAMELTEON 8 MG TAB (ROZEREM) PO (20:32)
[2017-10-19] MEDS: ASPIRIN 81 MG CHEW TABLET PO (20:32)
[2017-10-19] MEDS: TAMSULOSIN 0.4 MG CAP PO (20:32)
[2017-10-20 05:57] LABS: BASO % 0.3 % (0.0-1.0); EOS # 0.1 10^3/uL (0.0-0.50); EOS % 1.5 % (0.0-3.0); HEMOGLOBIN 9.4 g/dl (14.0-18.0); LYMPH # 1.1 10^3/uL (1.5-4.5); LYMPH % 31.9 % (24.0-44.0); MEAN CORPUSCULAR HEMOGLOBIN 29.7 pg (27.0-33.0); MEAN CORPUSCULAR HGB CONC 32.4 g/dl (32.0-36.5); MEAN CORPUSCULAR VOLUME 91.5 fl (80.0-96.0); MONO # 0.3 10^3/uL (0.0-0.8); MONO % 9.9 % (0.0-5.0); NEUTROPHILS # 1.9 10^3/uL (1.8-7.7); NEUTROPHILS % 56.4 % (36.0-66.0); PLATELET COUNT, AUTOMATED 125 10^3/uL (150-450); RED BLOOD COUNT 3.17 10^6/uL (4.30-6.10); RED CELL DISTRIBUTION WIDTH 14.1 % (11.5-14.5); WHITE BLOOD COUNT 3.4 10^3/uL (4.0-10.0)
[2017-10-20] MEDS: MIDODRINE 5 MG TAB PO ×3 (06:02→17:22)
[2017-10-20 06:11] LABS: ANION GAP 7 MEQ/L (8-16); BLOOD UREA NITROGEN 34 MG/DL (7-18); CALCIUM LEVEL 8.2 MG/DL (8.8-10.2); CARBON DIOXIDE LEVEL 30 MEQ/L (21-32); CHLORIDE LEVEL 104 MEQ/L (98-107); CREATININE FOR GFR 1.09 MG/DL (0.70-1.30); GLOMERULAR FILTRATION RATE > 60.0 (>42); GLUCOSE, FASTING 111 MG/DL (70-100); POTASSIUM SERUM 3.9 MEQ/L (3.5-5.1); SODIUM LEVEL 141 MEQ/L (136-145)
[2017-10-20 06:57] LABS: BEDSIDE GLUCOSE 197 MG/DL (83-110)
[2017-10-20] MEDS: HumaLOG INSULIN (NovoLOG) PER UNIT SC ×4 (07:30→20:14)
[2017-10-20] MEDS: OMEPRAZOLE 20 MG CAP PO (09:34)
[2017-10-20] MEDS: FEBUXOSTAT 40 MG TABLET (ULORIC) PO (09:34)
[2017-10-20] MEDS: FUROSEMIDE 20 MG TAB PO ×2 (09:35→17:22)
[2017-10-20] MEDS: LISINOPRIL *2.5 MG* TAB PO (09:35)
[2017-10-20] MEDS: GABAPENTIN 300 MG CAP PO ×3 (09:35→20:47)
[2017-10-20] MEDS: DOCUSATE SODIUM 100 MG CAP PO ×2 (09:35→20:47)
[2017-10-20] MEDS: buPROPion 75 MG TAB PO ×3 (09:35→20:47)
[2017-10-20] MEDS: FINASTERIDE 5 MG TAB PO (09:35)
[2017-10-20 11:56] LABS: BEDSIDE GLUCOSE 141 MG/DL (83-110)
[2017-10-20 16:40] LABS: BEDSIDE GLUCOSE 139 MG/DL (83-110)
[2017-10-20] MEDS: WARFARIN SOD 5 MG TAB PO (17:22)
[2017-10-20] MEDS: ASPIRIN 81 MG CHEW TABLET PO (20:46)
[2017-10-20] MEDS: RAMELTEON 8 MG TAB (ROZEREM) PO (20:46)
[2017-10-20] MEDS: traZODone 100 MG TAB PO (20:47)
[2017-10-20] MEDS: TAMSULOSIN 0.4 MG CAP PO (20:47)
[2017-10-20] MEDS: ATORVASTATIN 20 MG TAB PO (20:47)
[2017-10-21 05:43] LABS: BASO % 0.3 % (0.0-1.0); EOS # 0.1 10^3/uL (0.0-0.50); HEMATOCRIT 30.2 % (42.0-52.0); HEMOGLOBIN 9.7 g/dl (14.0-18.0); IMMATURE GRANULOCYTE % 0.3 % (0-0); LYMPH # 1.2 10^3/uL (1.5-4.5); LYMPH % 34.9 % (24.0-44.0); MEAN CORPUSCULAR HEMOGLOBIN 29.7 pg (27.0-33.0); MEAN CORPUSCULAR HGB CONC 32.1 g/dl (32.0-36.5); MEAN CORPUSCULAR VOLUME 92.4 fl (80.0-96.0); MONO # 0.4 10^3/uL (0.0-0.8); MONO % 10.7 % (0.0-5.0); NEUTROPHILS # 1.8 10^3/uL (1.8-7.7); NEUTROPHILS % 51.8 % (36.0-66.0); PLATELET COUNT, AUTOMATED 117 10^3/uL (150-450); RED BLOOD COUNT 3.27 10^6/uL (4.30-6.10); RED CELL DISTRIBUTION WIDTH 14.2 % (11.5-14.5); WHITE BLOOD COUNT 3.6 10^3/uL (4.0-10.0)
[2017-10-21] MEDS: MIDODRINE 5 MG TAB PO ×3 (05:47→18:04)
[2017-10-21 05:53] LABS: INR 2.15; PROTHROMBIN TIME 24.8 SECONDS (12.4-14.5)
[2017-10-21 06:10] LABS: ANION GAP 7 MEQ/L (8-16); BLOOD UREA NITROGEN 39 MG/DL (7-18); CALCIUM LEVEL 8.5 MG/DL (8.8-10.2); CARBON DIOXIDE LEVEL 30 MEQ/L (21-32); CHLORIDE LEVEL 104 MEQ/L (98-107); CREATININE FOR GFR 1.12 MG/DL (0.70-1.30); GLOMERULAR FILTRATION RATE > 60.0 (>42); GLUCOSE, FASTING 123 MG/DL (70-100); POTASSIUM SERUM 4.2 MEQ/L (3.5-5.1); SODIUM LEVEL 141 MEQ/L (136-145)
[2017-10-21] MEDS: HumaLOG INSULIN (NovoLOG) PER UNIT SC ×4 (07:30→21:00)
[2017-10-21] MEDS: OMEPRAZOLE 20 MG CAP PO (08:27)
[2017-10-21] MEDS: FEBUXOSTAT 40 MG TABLET (ULORIC) PO (08:27)
[2017-10-21] MEDS: DOCUSATE SODIUM 100 MG CAP PO ×2 (08:27→21:55)
[2017-10-21] MEDS: FUROSEMIDE 20 MG TAB PO (08:27)
[2017-10-21] MEDS: LISINOPRIL *2.5 MG* TAB PO (08:27)
[2017-10-21] MEDS: GABAPENTIN 300 MG CAP PO ×3 (08:27→21:55)
[2017-10-21] MEDS: buPROPion 75 MG TAB PO ×3 (08:27→21:55)
[2017-10-21] MEDS: FINASTERIDE 5 MG TAB PO (08:27)
[2017-10-21 08:53] LABS: BEDSIDE GLUCOSE 170 MG/DL (83-110)
[2017-10-21] MEDS: WARFARIN SOD 5 MG TAB PO (18:03)
[2017-10-21 21:30] LABS: BEDSIDE GLUCOSE 105 MG/DL (83-110)
[2017-10-21 21:30] LABS: BEDSIDE GLUCOSE 120 MG/DL (83-110)
[2017-10-21 21:30] LABS: BEDSIDE GLUCOSE 231 MG/DL (83-110)
[2017-10-21] MEDS: RAMELTEON 8 MG TAB (ROZEREM) PO (21:55)
[2017-10-21] MEDS: ASPIRIN 81 MG CHEW TABLET PO (21:55)
[2017-10-21] MEDS: traZODone 25MG PER 1/2 TABLET PO (21:55)
[2017-10-21] MEDS: TAMSULOSIN 0.4 MG CAP PO (21:55)
[2017-10-21] MEDS: ATORVASTATIN 20 MG TAB PO (21:56)
[2017-10-21 22:26] LABS: BEDSIDE GLUCOSE 100 MG/DL (83-110)
[2017-10-22] MEDS: MIDODRINE 5 MG TAB PO ×3 (06:17→17:07)
[2017-10-22 06:19] LABS: BASO % 0.3 % (0.0-1.0); EOS # 0.1 10^3/uL (0.0-0.50); EOS % 1.7 % (0.0-3.0); HEMATOCRIT 28.5 % (42.0-52.0); IMMATURE GRANULOCYTE % 0.3 % (0-0); LYMPH # 0.9 10^3/uL (1.5-4.5); LYMPH % 26.5 % (24.0-44.0); MEAN CORPUSCULAR HEMOGLOBIN 29.1 pg (27.0-33.0); MEAN CORPUSCULAR HGB CONC 31.6 g/dl (32.0-36.5); MEAN CORPUSCULAR VOLUME 92.2 fl (80.0-96.0); MONO # 0.4 10^3/uL (0.0-0.8); MONO % 10.7 % (0.0-5.0); NEUTROPHILS # 2.2 10^3/uL (1.8-7.7); NEUTROPHILS % 60.5 % (36.0-66.0); PLATELET COUNT, AUTOMATED 128 10^3/uL (150-450); RED BLOOD COUNT 3.09 10^6/uL (4.30-6.10); RED CELL DISTRIBUTION WIDTH 14.2 % (11.5-14.5); WHITE BLOOD COUNT 3.6 10^3/uL (4.0-10.0)
[2017-10-22 06:29] LABS: INR 2.56; PROTHROMBIN TIME 28.6 SECONDS (12.4-14.5)
[2017-10-22 06:39] LABS: ANION GAP 5 MEQ/L (8-16); BLOOD UREA NITROGEN 36 MG/DL (7-18); CALCIUM LEVEL 8.1 MG/DL (8.8-10.2); CARBON DIOXIDE LEVEL 32 MEQ/L (21-32); CHLORIDE LEVEL 105 MEQ/L (98-107); CREATININE FOR GFR 0.93 MG/DL (0.70-1.30); GLOMERULAR FILTRATION RATE > 60.0 (>42); GLUCOSE, FASTING 116 MG/DL (70-100); POTASSIUM SERUM 4.1 MEQ/L (3.5-5.1); SODIUM LEVEL 142 MEQ/L (136-145)
[2017-10-22] MEDS: HumaLOG INSULIN (NovoLOG) PER UNIT SC ×4 (07:30→21:00)
[2017-10-22] MEDS: FEBUXOSTAT 40 MG TABLET (ULORIC) PO (10:17)
[2017-10-22] MEDS: FINASTERIDE 5 MG TAB PO (10:17)
[2017-10-22] MEDS: GABAPENTIN 300 MG CAP PO ×3 (10:17→22:20)
[2017-10-22] MEDS: buPROPion 75 MG TAB PO ×3 (10:17→22:20)
[2017-10-22] MEDS: OMEPRAZOLE 20 MG CAP PO (10:17)
[2017-10-22] MEDS: FUROSEMIDE 20 MG TAB PO (10:18)
[2017-10-22] MEDS: DOCUSATE SODIUM 100 MG CAP PO ×3 (10:18→22:20)
[2017-10-22] MEDS: LISINOPRIL *2.5 MG* TAB PO (10:18)
[2017-10-22] MEDS: WARFARIN SOD 5 MG TAB PO (17:08)
[2017-10-22] MEDS: TAMSULOSIN 0.4 MG CAP PO (22:20)
[2017-10-22] MEDS: ATORVASTATIN 20 MG TAB PO (22:20)
[2017-10-22] MEDS: ASPIRIN 81 MG CHEW TABLET PO (22:20)
[2017-10-22] MEDS: RAMELTEON 8 MG TAB (ROZEREM) PO (22:20)
[2017-10-22] MEDS: traZODone 25MG PER 1/2 TABLET PO (22:21)
[2017-10-23 05:22] LABS: BEDSIDE GLUCOSE 216 MG/DL (83-110)
[2017-10-23 05:22] LABS: BEDSIDE GLUCOSE 153 MG/DL (83-110)
[2017-10-23 05:22] LABS: BEDSIDE GLUCOSE 104 MG/DL (83-110)
[2017-10-23] MEDS: MIDODRINE 5 MG TAB PO ×3 (05:43→17:21)
[2017-10-23 06:53] LABS: BASO % 0.3 % (0.0-1.0); EOS # 0.1 10^3/uL (0.0-0.50); EOS % 1.7 % (0.0-3.0); HEMATOCRIT 30.4 % (42.0-52.0); HEMOGLOBIN 9.8 g/dl (14.0-18.0); IMMATURE GRANULOCYTE % 0.3 % (0-3.0); LYMPH # 1.1 10^3/uL (1.5-4.5); MEAN CORPUSCULAR HEMOGLOBIN 30.1 pg (27.0-33.0); MEAN CORPUSCULAR HGB CONC 32.2 g/dl (32.0-36.5); MEAN CORPUSCULAR VOLUME 93.3 fl (80.0-96.0); MONO # 0.3 10^3/uL (0.0-0.8); MONO % 9.2 % (0.0-5.0); NEUTROPHILS # 1.6 10^3/uL (1.8-7.7); NEUTROPHILS % 51.5 % (36.0-66.0); PLATELET COUNT, AUTOMATED 150 10^3/uL (150-450); RED BLOOD COUNT 3.26 10^6/uL (4.30-6.10)
[2017-10-23 07:14] LABS: INR 2.56; PROTHROMBIN TIME 28.6 SECONDS (12.4-14.5)
[2017-10-23 07:24] LABS: ANION GAP 7 MEQ/L (8-16); BLOOD UREA NITROGEN 33 MG/DL (7-18); CALCIUM LEVEL 8.6 MG/DL (8.8-10.2); CARBON DIOXIDE LEVEL 29 MEQ/L (21-32); CHLORIDE LEVEL 105 MEQ/L (98-107); CREATININE FOR GFR 0.95 MG/DL (0.70-1.30); GLOMERULAR FILTRATION RATE > 60.0 (>42); GLUCOSE, FASTING 122 MG/DL (70-100); POTASSIUM SERUM 4.2 MEQ/L (3.5-5.1); SODIUM LEVEL 141 MEQ/L (136-145)
[2017-10-23] MEDS: OMEPRAZOLE 20 MG CAP PO (08:59)
[2017-10-23] MEDS: FEBUXOSTAT 40 MG TABLET (ULORIC) PO (08:59)
[2017-10-23] MEDS: GABAPENTIN 300 MG CAP PO ×3 (08:59→20:31)
[2017-10-23] MEDS: HumaLOG INSULIN (NovoLOG) PER UNIT SC ×4 (08:59→21:00)
[2017-10-23] MEDS: DOCUSATE SODIUM 100 MG CAP PO ×2 (08:59→20:31)
[2017-10-23] MEDS: LISINOPRIL *2.5 MG* TAB PO (09:00)
[2017-10-23] MEDS: FINASTERIDE 5 MG TAB PO (09:00)
[2017-10-23] MEDS: buPROPion 75 MG TAB PO ×3 (09:00→20:31)
[2017-10-23] MEDS: FUROSEMIDE 20 MG TAB PO (09:00)
[2017-10-23 12:02] LABS: BEDSIDE GLUCOSE 138 MG/DL (83-110)
[2017-10-23 17:17] LABS: BEDSIDE GLUCOSE 116 MG/DL (83-110)
[2017-10-23] MEDS: WARFARIN SOD 5 MG TAB PO (17:21)
[2017-10-23] MEDS: TAMSULOSIN 0.4 MG CAP PO (20:31)
[2017-10-23] MEDS: RAMELTEON 8 MG TAB (ROZEREM) PO (20:31)
[2017-10-23] MEDS: ATORVASTATIN 20 MG TAB PO (20:31)
[2017-10-23] MEDS: ASPIRIN 81 MG CHEW TABLET PO (20:31)
[2017-10-23] MEDS: traZODone 25MG PER 1/2 TABLET PO (20:32)
[2017-10-23 22:18] LABS: BEDSIDE GLUCOSE 160 MG/DL (83-110)
[2017-10-24] MEDS: MIDODRINE 5 MG TAB PO ×2 (05:31→12:04)
[2017-10-24 06:41] LABS: BASO % 0.3 % (0.0-1.0); EOS # 0.1 10^3/uL (0.0-0.50); EOS % 2.5 % (0.0-3.0); HEMATOCRIT 28.8 % (42.0-52.0); HEMOGLOBIN 9.3 g/dl (14.0-18.0); IMMATURE GRANULOCYTE % 0.3 % (0-3.0); LYMPH # 1.1 10^3/uL (1.5-4.5); MEAN CORPUSCULAR HEMOGLOBIN 29.3 pg (27.0-33.0); MEAN CORPUSCULAR HGB CONC 32.3 g/dl (32.0-36.5); MEAN CORPUSCULAR VOLUME 90.9 fl (80.0-96.0); MONO # 0.3 10^3/uL (0.0-0.8); MONO % 7.4 % (0.0-5.0); NEUTROPHILS # 2.2 10^3/uL (1.8-7.7); NEUTROPHILS % 60.5 % (36.0-66.0); PLATELET COUNT, AUTOMATED 161 10^3/uL (150-450); RED BLOOD COUNT 3.17 10^6/uL (4.30-6.10); WHITE BLOOD COUNT 3.7 10^3/uL (4.0-10.0)
[2017-10-24 06:59] LABS: PROTHROMBIN TIME 30.7 SECONDS (12.4-14.5)
[2017-10-24 07:08] LABS: ANION GAP 6 MEQ/L (8-16); BLOOD UREA NITROGEN 29 MG/DL (7-18); CALCIUM LEVEL 7.9 MG/DL (8.8-10.2); CARBON DIOXIDE LEVEL 27 MEQ/L (21-32); CHLORIDE LEVEL 106 MEQ/L (98-107); CREATININE FOR GFR 0.91 MG/DL (0.70-1.30); GLOMERULAR FILTRATION RATE > 60.0 (>42); GLUCOSE, FASTING 113 MG/DL (70-100); POTASSIUM SERUM 4.2 MEQ/L (3.5-5.1); SODIUM LEVEL 139 MEQ/L (136-145)
[2017-10-24] MEDS: HumaLOG INSULIN (NovoLOG) PER UNIT SC ×2 (07:30→12:03)
[2017-10-24] MEDS: GABAPENTIN 300 MG CAP PO (08:42)
[2017-10-24] MEDS: OMEPRAZOLE 20 MG CAP PO (08:42)
[2017-10-24] MEDS: LISINOPRIL *2.5 MG* TAB PO (08:42)
[2017-10-24] MEDS: FINASTERIDE 5 MG TAB PO (08:43)
[2017-10-24] MEDS: TORSEMIDE 5MG TABLET PO (08:43)
[2017-10-24] MEDS: FEBUXOSTAT 40 MG TABLET (ULORIC) PO (08:43)
[2017-10-24] MEDS: buPROPion 75 MG TAB PO (08:43)
[2017-10-24] MEDS: DOCUSATE SODIUM 100 MG CAP PO (08:43)
[2017-10-25 16:26] LABS: BEDSIDE GLUCOSE 134 MG/DL (83-110)
== END 2017-10-24 15:05 | disposition home health service (06) | DRG 312 ==
LOC: M ED 05:39 → M ED INP 08:30 → M MSPAV 11:45
DX: I95.1 Orthostatic hypotension (principal); I50.32 Chronic diastolic (congestive) heart failure; L89.152 Pressure ulcer of sacral region, stage 2; I25.10 Atherosclerotic heart disease of native coronary artery without angina pectoris; E78.5 Hyperlipidemia, unspecified; N40.0 Benign prostatic hyperplasia without lower urinary tract symptoms; F32.9 Major depressive disorder, single episode, unspecified; E11.9 Type 2 diabetes mellitus without complications; Z79.01 Long term (current) use of anticoagulants; S00.11XA Contusion of right eyelid and periocular area, initial encounter; W18.30XA Fall on same level, unspecified, initial encounter; Y92.009 Unspecified place in unspecified non-institutional (private) residence as the place of occurrence of the external cause; Z79.899 Other long term (current) drug therapy; Z79.82 Long term (current) use of aspirin; Z91.018 Allergy to other foods; Z91.041 Radiographic dye allergy status; Z86.718 Personal history of other venous thrombosis and embolism

== ENCOUNTER → 2017-10-28 | Outpatient (REF) | payer MEDICARE, MEDICAID ==
[2017-10-28 18:09] LABS: BASO % 0.5 % (0.0-1.0); EOS % 0.9 % (0.0-3.0); HEMATOCRIT 31.3 % (42.0-52.0); HEMOGLOBIN 9.8 g/dl (14.0-18.0); LYMPH # 1.3 10^3/uL (1.5-4.5); LYMPH % 28.7 % (24.0-44.0); MEAN CORPUSCULAR HEMOGLOBIN 29.5 pg (27.0-33.0); MEAN CORPUSCULAR HGB CONC 31.3 g/dl (32.0-36.5); MEAN CORPUSCULAR VOLUME 94.3 fl (80.0-96.0); MONO # 0.3 10^3/uL (0.0-0.8); MONO % 6.5 % (0.0-5.0); NEUTROPHILS # 2.8 10^3/uL (1.8-7.7); NEUTROPHILS % 63.4 % (36.0-66.0); PLATELET COUNT, AUTOMATED 193 10^3/uL (150-450); RED BLOOD COUNT 3.32 10^6/uL (4.30-6.10); RED CELL DISTRIBUTION WIDTH 14.6 % (11.5-14.5); RETIC HEMOGLOBIN EQUIVALENT 38.3 pg (24-36); RETICULOCYTE # 116.2 10^9/L (17-77); RETICULOCYTE % 3.5 % (0.5-1.5); WHITE BLOOD COUNT 4.4 10^3/uL (4.0-10.0)
[2017-10-28 18:11] LABS: INR 2.14; PROTHROMBIN TIME 24.7 SECONDS (12.4-14.5)
[2017-10-28 18:12] LABS: PARTIAL THROMBOPLASTIN TIME 41.6 SECONDS (26.8-37.9)
[2017-10-28 19:39] LABS: ALBUMIN 3.2 GM/DL (3.2-5.2); ALBUMIN/GLOBULIN RATIO 1.28 (1.00-1.93); ALKALINE PHOSPHATASE 62 U/L (45-117); ALT/SGPT 33 U/L (12-78); ANION GAP 10 MEQ/L (8-16); AST/SGOT 32 U/L (7-37); BILIRUBIN,TOTAL 0.7 MG/DL (0.2-1.0); BLOOD UREA NITROGEN 27 MG/DL (7-18); CALCIUM LEVEL 8.3 MG/DL (8.8-10.2); CARBON DIOXIDE LEVEL 26 MEQ/L (21-32); CHLORIDE LEVEL 106 MEQ/L (98-107); CREATININE FOR GFR 0.98 MG/DL (0.70-1.30); FREE T4 1.07 NG/DL (0.76-1.46); GLOMERULAR FILTRATION RATE > 60.0 (>42); GLUCOSE, FASTING 78 MG/DL (70-100); MAGNESIUM LEVEL 2.3 MG/DL (1.8-2.4); POTASSIUM SERUM 4.2 MEQ/L (3.5-5.1); SODIUM LEVEL 142 MEQ/L (136-145); TOTAL PROTEIN 5.7 GM/DL (6.4-8.2)
== END ==
LOC: M SFHCPLAZ 13:40
DX: I50.42 Chronic combined systolic (congestive) and diastolic (congestive) heart failure (principal); Z51.81 Encounter for therapeutic drug level monitoring; Z79.01 Long term (current) use of anticoagulants
CPT/HCPCS: 83735

== ENCOUNTER 2018-01-04 08:52 | Emergency (ER) | payer MEDICARE, MEDICAID ==
[2018-01-04 09:57] LABS: BASO % 0.5 % (0.0-1.0); EOS # 0.1 10^3/uL (0.0-0.50); EOS % 3.3 % (0.0-3.0); HEMATOCRIT 33.3 % (42.0-52.0); HEMOGLOBIN 10.3 g/dl (13.5-17.5); IMMATURE GRANULOCYTE % 0.3 % (0-3.0); MEAN CORPUSCULAR HEMOGLOBIN 30.1 pg (27.0-33.0); MEAN CORPUSCULAR HGB CONC 30.9 g/dl (32.0-36.5); MEAN CORPUSCULAR VOLUME 97.4 fl (80.0-96.0); MONO # 0.3 10^3/uL (0.0-0.8); MONO % 7.6 % (0.0-5.0); NEUTROPHILS # 2.5 10^3/uL (1.8-7.7); NEUTROPHILS % 63.3 % (36.0-66.0); PLATELET COUNT, AUTOMATED 156 10^3/uL (150-450); RED BLOOD COUNT 3.42 10^6/uL (4.30-6.10); RED CELL DISTRIBUTION WIDTH 13.4 % (11.5-14.5)
[2018-01-04 10:08] LABS: PROTHROMBIN TIME 19.5 SECONDS (12.4-14.5)
[2018-01-04 10:09] LABS: PARTIAL THROMBOPLASTIN TIME 45.7 SECONDS (26.8-37.9)
== END 2018-01-04 12:00 | disposition home or self-care (01) ==
LOC: M ED 08:52
DX: S51.811A Laceration without foreign body of right forearm, initial encounter (principal); X58.XXXA Exposure to other specified factors, initial encounter; Y92.89 Other specified places as the place of occurrence of the external cause; I50.9 Heart failure, unspecified; I13.0 Hypertensive heart and chronic kidney disease with heart failure and stage 1 through stage 4 chronic kidney disease, or unspecified chronic kidney disease; N18.4 Chronic kidney disease, stage 4 (severe); I25.2 Old myocardial infarction; Z79.01 Long term (current) use of anticoagulants; Z79.4 Long term (current) use of insulin; Z79.899 Other long term (current) drug therapy; Z79.82 Long term (current) use of aspirin; Z86.718 Personal history of other venous thrombosis and embolism; Z87.891 Personal history of nicotine dependence; Z95.1 Presence of aortocoronary bypass graft; Z95.0 Presence of cardiac pacemaker; Z98.0 Intestinal bypass and anastomosis status; Z91.041 Radiographic dye allergy status; Z91.018 Allergy to other foods
CPT/HCPCS: 85610

== ENCOUNTER → 2018-02-10 | Outpatient (REF) | payer MEDICARE ==
[2018-02-10 15:53] LABS: BASO % 0.5 % (0.0-1.0); EOS # 0.1 10^3/uL (0.0-0.50); EOS % 3.3 % (0.0-3.0); HEMOGLOBIN 9.8 g/dl (13.5-17.5); IMMATURE GRANULOCYTE % 0.3 % (0-3.0); LYMPH # 1.6 10^3/uL (1.5-4.5); LYMPH % 40.8 % (24.0-44.0); MEAN CORPUSCULAR HEMOGLOBIN 28.7 pg (27.0-33.0); MEAN CORPUSCULAR HGB CONC 30.6 g/dl (32.0-36.5); MEAN CORPUSCULAR VOLUME 93.8 fl (80.0-96.0); MONO # 0.3 10^3/uL (0.0-0.8); MONO % 7.9 % (0.0-5.0); NEUTROPHILS # 1.9 10^3/uL (1.8-7.7); NEUTROPHILS % 47.2 % (36.0-66.0); PLATELET COUNT, AUTOMATED 164 10^3/uL (150-450); RED BLOOD COUNT 3.41 10^6/uL (4.30-6.10); RED CELL DISTRIBUTION WIDTH 14.4 % (11.5-14.5); RETIC HEMOGLOBIN EQUIVALENT 35.5 pg (24-36); RETICULOCYTE # 51.8 10^9/L (17-77); RETICULOCYTE % 1.5 % (0.5-1.5); WHITE BLOOD COUNT 3.9 10^3/uL (4.0-10.0)
[2018-02-10 16:11] LABS: INR 2.87; PROTHROMBIN TIME 31.3 SECONDS (12.4-14.5)
[2018-02-10 16:24] LABS: ESTIMATED AVERAGE GLUCOSE 100 MG/DL (60-110); HEMOGLOBIN A1c 5.1 %
[2018-02-10 16:42] LABS: ALBUMIN 3.2 GM/DL (3.2-5.2); ALBUMIN/GLOBULIN RATIO 1.19 (1.00-1.93); ALKALINE PHOSPHATASE 103 U/L (45-117); ALT/SGPT 42 U/L (12-78); ANION GAP 7 MEQ/L (8-16); AST/SGOT 37 U/L (7-37); BILIRUBIN,TOTAL 0.3 MG/DL (0.2-1.0); BLOOD UREA NITROGEN 33 MG/DL (7-18); CARBON DIOXIDE LEVEL 27 MEQ/L (21-32); CHLORIDE LEVEL 108 MEQ/L (98-107); CHOLESTEROL LEVEL 109 MG/DL (<200); CHOLESTEROL RISK RATIO 2.422 (<5); CREATININE FOR GFR 1.29 MG/DL (0.70-1.30); FREE T4 0.96 NG/DL (0.76-1.46); GLOMERULAR FILTRATION RATE 57.8 (>42); GLUCOSE, FASTING 82 MG/DL (70-100); HDL CHOLESTEROL 45 MG/DL (>40); LDL CHOLESTEROL 46.4 MG/DL (<100); MAGNESIUM LEVEL 2.4 MG/DL (1.8-2.4); NON-HDL-C 64 MG/DL; POTASSIUM SERUM 4.5 MEQ/L (3.5-5.1); SODIUM LEVEL 142 MEQ/L (136-145); TOTAL PROTEIN 5.9 GM/DL (6.4-8.2); TRIGLYCERIDES LEVEL 88 MG/DL (<150)
== END ==
LOC: M SFHCPLAZ 11:06
DX: I50.42 Chronic combined systolic (congestive) and diastolic (congestive) heart failure (principal); N18.3 Chronic kidney disease, stage 3 (moderate); E04.2 Nontoxic multinodular goiter; E11.8 Type 2 diabetes mellitus with unspecified complications; E78.5 Hyperlipidemia, unspecified; I82.409 Acute embolism and thrombosis of unspecified deep veins of unspecified lower extremity
CPT/HCPCS: 83735

== ENCOUNTER → 2018-02-24 | Outpatient (CLI) | payer MEDICARE, MEDICAID | LOC: M RAD 13:54 | DX: M47.816 Spondylosis without myelopathy or radiculopathy, lumbar region (principal) | CPT/HCPCS: 72110 ==

== ENCOUNTER → 2018-03-02 | Outpatient (REF) | payer MEDICARE ==
[2018-03-02 11:54] LABS: BASO % 0.6 % (0.0-1.0); EOS % 0.8 % (0.0-3.0); HEMATOCRIT 26.2 % (42.0-52.0); IMMATURE GRANULOCYTE % 0.4 % (0-3.0); LYMPH # 1.1 10^3/uL (1.5-4.5); LYMPH % 21.9 % (24.0-44.0); MEAN CORPUSCULAR HEMOGLOBIN 28.5 pg (27.0-33.0); MEAN CORPUSCULAR HGB CONC 30.5 g/dl (32.0-36.5); MEAN CORPUSCULAR VOLUME 93.2 fl (80.0-96.0); MONO # 0.3 10^3/uL (0.0-0.8); MONO % 6.5 % (0.0-5.0); NEUTROPHILS # 3.5 10^3/uL (1.8-7.7); NEUTROPHILS % 69.8 % (36.0-66.0); PLATELET COUNT, AUTOMATED 156 10^3/uL (150-450); RED BLOOD COUNT 2.81 10^6/uL (4.30-6.10); RED CELL DISTRIBUTION WIDTH 15.2 % (11.5-14.5); WHITE BLOOD COUNT 4.9 10^3/uL (4.0-10.0)
[2018-03-02 12:11] LABS: VITAMIN B12 LEVEL 554 PG/ML (247-911)
[2018-03-02 12:12] LABS: INR 3.32; PROTHROMBIN TIME 35.3 SECONDS (12.4-14.5)
[2018-03-02 12:13] LABS: PARTIAL THROMBOPLASTIN TIME 48.1 SECONDS (26.8-37.9)
[2018-03-02 12:14] LABS: HEMATOCRIT 26.3 % (42.0-52.0)
[2018-03-03 11:21] LABS: PRETREATED FOLATE FOR RBCFOL 12.6 NG/ML; RBC FOLATE 1006.1 NG/ML (280-791)
[2018-03-03 14:16] LABS: ERYTHROPOIETIN 78.5 mIU/mL (2.6-18.5)
[2018-03-05 12:23] LABS: ALBUMIN % 61.7 % (55.8-66.1); ALPHA-1-GLOBULIN % 5.9 % (2.9-4.9); ALPHA-1-GLOBULINS 0.35 GM/DL (0.17-0.41); ALPHA-2-GLOBULINS 0.63 GM/DL (0.42-0.99); ALPHA-2-GLOBULINS % 10.5 % (7.1-11.8); BETA-1-GLOBULINS 0.41 GM/DL (0.28-0.60); BETA-1-GLOBULINS % 6.9 % (4.7-7.2); BETA-2-GLOBULINS 0.29 GM/DL (0.19-0.55); BETA-2-GLOBULINS % 4.8 % (3.2-6.5); GAMMA GLOBULIN % 10.2 % (11.1-18.8); GAMMA GLOBULINS 0.61 GM/DL (0.65-1.58)
== END ==
LOC: M SFHCPLAZ 08:01
DX: D50.9 Iron deficiency anemia, unspecified (principal); Z51.81 Encounter for therapeutic drug level monitoring; E53.8 Deficiency of other specified B group vitamins
CPT/HCPCS: 84165

== ENCOUNTER 2018-03-03 12:44 | Outpatient (CLI) | payer MEDICARE, MEDICAID ==
[2018-03-03 14:47] LABS: IMMEDIATE SPIN CROSSMATCH 1 2
[2018-03-03] MEDS: FUROSEMIDE 40 MG/4 ML VIAL (J1940) IV ×2 (16:58)
== END 2018-03-03 20:00 | disposition home or self-care (01) ==
LOC: M INFU 12:44 → M MS5PR 18:10 → M INFU 20:00
DX: D64.9 Anemia, unspecified (principal); J45.909 Unspecified asthma, uncomplicated; E11.9 Type 2 diabetes mellitus without complications; M12.9 Arthropathy, unspecified; M54.9 Dorsalgia, unspecified; Z79.4 Long term (current) use of insulin; Z79.899 Other long term (current) drug therapy; Z98.84 Bariatric surgery status; Z91.041 Radiographic dye allergy status; Z91.018 Allergy to other foods; Z91.038 Other insect allergy status; Z95.0 Presence of cardiac pacemaker; Z87.891 Personal history of nicotine dependence; K21.9 Gastro-esophageal reflux disease without esophagitis; Z79.01 Long term (current) use of anticoagulants
CPT/HCPCS: 36430

== ENCOUNTER → 2018-03-06 | Outpatient (CLI) | payer MEDICARE, MEDICAID ==
[~2018-03-06] MED LIST changes: -/ADVA50050 INH; -/TAMS4CA; -/TIOT18INH; -/WARF2TA PO; -/WARF5TA; -ALDA25TA2; -ALLO100T PO; -ALLO300T; -AMMO12CR4 TOP; -ASPI1TAB PO; -ASPI81CH PO; -ATOM40CA PO; -BABY81CH; -BACIDCA PO; -BUPR75TA5 PO; -CALCTAB74 PO; -CARV3.12; -CELE20TA; -CELE20TA PO; -CIPR500T19; -CLIN300C PO; -COLA100C5 PO; -COMBAER6 INH; -COMBIN INH; -COMBVENT; -CORE3.12 PO; -COUM1TAB14 PO; -COUM1TAB17 PO; -COUM1TAB19 PO; -COUM2.5T17 PO; -COUM7.5T PO; -COZA25TA8; -CRES40TA PO; -Coreg PO; -DOCU10ELUD PO; +E-Z-GAS II EFFERVESCENT PACKET (SODIUM BICARB./CITRIC ACID/SIMETHICONE) As Ordered; +E-Z-HD 98% w/w 340GM SUSP BTL As Ordered; +E-Z-PAQUE 96% w/w SUSP 176GM BTL As Ordered; -ELIQ5TAB PO; -FINA5TAB2 PO; -FLOM5CAP PO; -FLUD0.1T PO; -FURO20TA2 PO; -FURO40TA2 PO; -GABA-282 PO; -GABA600T PO; -GLUC1KIT SC; -GLUC5TAB3 PO; -HUMA100I5 SC; -HUMOLOG SQ; -INSUHUMDS SC; -INSULANT SC; -INSULIN R; -KLOR1TAB77 PO; -LAC-12LO3 TOP; -MIDO10TA PO; -MIDO5TA PO; -NEUR300C PO; -NIFE15CA PO; -NORC1TAB4 PO; -NYST1POW9 TOP; -Nystatin Powder TOP; -OCUVTAB PO; -OMEP20CA3 PO; -OMEP40CA2 PO; -PERC5TAB12 PO; -POTA10CA PO; -POTA20TA PO; -PRESCAP6 PO; -PRIL20CA PO; -PROM-190 PO; -Potassium PO; -REFR0.5D8 OU; -ROZE8TAB16 PO; -SIMV80TA; -SPIR25TA2 PO; -TAMS0.4C2 PO; -TIOT18INH INH; -TRAZ-136 PO; -TYLE167L PO; -ULOR80TA PO; -ULOR80TA2 PO; -VICO5TAB; -VITA10002 PO; -VITA100027; -VITMTA PO; -WARF-21 PO; -WARFARIN; -ZETI10TA; -ZETI10TA30 PO; -ZINC60OI TOP
== END ==
LOC: M RAD 07:07
DX: K44.9 Diaphragmatic hernia without obstruction or gangrene (principal); K21.9 Gastro-esophageal reflux disease without esophagitis; D64.9 Anemia, unspecified; Z79.01 Long term (current) use of anticoagulants; Z51.81 Encounter for therapeutic drug level monitoring; Z98.84 Bariatric surgery status
CPT/HCPCS: 74241

== ENCOUNTER → 2018-03-10 | Outpatient (REF) | payer MEDICARE ==
[2018-03-10 16:20] LABS: BASO % 0.3 % (0.0-1.0); EOS # 0.1 10^3/uL (0.0-0.50); EOS % 1.4 % (0.0-3.0); HEMATOCRIT 30.7 % (42.0-52.0); HEMOGLOBIN 9.7 g/dl (13.5-17.5); IMMATURE GRANULOCYTE % 0.3 % (0-3.0); LYMPH % 28.3 % (24.0-44.0); MEAN CORPUSCULAR HGB CONC 31.6 g/dl (32.0-36.5); MEAN CORPUSCULAR VOLUME 91.6 fl (80.0-96.0); MONO # 0.3 10^3/uL (0.0-0.8); MONO % 7.6 % (0.0-5.0); NEUTROPHILS # 2.3 10^3/uL (1.8-7.7); NEUTROPHILS % 62.1 % (36.0-66.0); PLATELET COUNT, AUTOMATED 150 10^3/uL (150-450); RED BLOOD COUNT 3.35 10^6/uL (4.30-6.10); RED CELL DISTRIBUTION WIDTH 14.5 % (11.5-14.5); WHITE BLOOD COUNT 3.7 10^3/uL (4.0-10.0)
[2018-03-10 16:35] LABS: INR 1.13; PROTHROMBIN TIME 14.7 SECONDS (12.4-14.5)
== END ==
LOC: M SFHCPLAZ 12:48
DX: Z79.01 Long term (current) use of anticoagulants (principal); D64.9 Anemia, unspecified
CPT/HCPCS: 85610

== ENCOUNTER → 2018-03-13 | Outpatient (REF) | payer MEDICARE ==
[2018-03-13 13:06] LABS: BASO % 0.5 % (0.0-1.0); EOS % 1.1 % (0.0-3.0); HEMATOCRIT 34.9 % (42.0-52.0); HEMOGLOBIN 10.8 g/dl (13.5-17.5); LYMPH # 1.2 10^3/uL (1.5-4.5); LYMPH % 32.9 % (24.0-44.0); MEAN CORPUSCULAR HEMOGLOBIN 28.9 pg (27.0-33.0); MEAN CORPUSCULAR HGB CONC 30.9 g/dl (32.0-36.5); MEAN CORPUSCULAR VOLUME 93.3 fl (80.0-96.0); MONO # 0.3 10^3/uL (0.0-0.8); MONO % 6.7 % (0.0-5.0); NEUTROPHILS # 2.2 10^3/uL (1.8-7.7); NEUTROPHILS % 58.8 % (36.0-66.0); PLATELET COUNT, AUTOMATED 160 10^3/uL (150-450); RED BLOOD COUNT 3.74 10^6/uL (4.30-6.10); RED CELL DISTRIBUTION WIDTH 14.6 % (11.5-14.5); WHITE BLOOD COUNT 3.7 10^3/uL (4.0-10.0)
[2018-03-13 13:17] LABS: INR 0.95; PARTIAL THROMBOPLASTIN TIME 31.5 SECONDS (25.4-37.6); PROTHROMBIN TIME 12.8 SECONDS (12.1-14.4)
== END ==
LOC: M SFHCPLAZ 12:12
DX: D64.9 Anemia, unspecified (principal); Z51.81 Encounter for therapeutic drug level monitoring; Z79.01 Long term (current) use of anticoagulants
CPT/HCPCS: 85610

== ENCOUNTER 2018-03-25 06:47 | Day surgery (SDC) | payer MEDICARE, MEDICAID ==
[2018-03-25] MEDS: NS 1,000 ML IV (07:00)
[2018-03-25 08:25] LABS: BEDSIDE GLUCOSE 127 MG/DL (83-110)
[2018-03-25] MEDS ORDERED: PROPOFOL 200 MG/20 ML VIAL As Ordered (08:43)
[2018-03-25] MEDS ORDERED: fentaNYL 100 MCG/2 ML INJECTION (J3010) As Ordered (08:43)
[2018-03-25] MEDS ORDERED: LIDOCAINE 2% INJ 100 MG/5 ML SDV (FOR ANES.) As Ordered (08:43)
[2018-03-25] MEDS ORDERED: ePHEDrine SULFATE 25 MG/5 ML(5MG/ML) SYRINGE As Ordered (08:50)
== END 2018-03-25 09:43 | disposition home or self-care (01) ==
LOC: M OPP 06:47
DX: D12.0 Benign neoplasm of cecum (principal); K57.30 Diverticulosis of large intestine without perforation or abscess without bleeding; K31.89 Other diseases of stomach and duodenum; D62 Acute posthemorrhagic anemia; E11.9 Type 2 diabetes mellitus without complications; J44.9 Chronic obstructive pulmonary disease, unspecified; E78.00 Pure hypercholesterolemia, unspecified; I12.9 Hypertensive chronic kidney disease with stage 1 through stage 4 chronic kidney disease, or unspecified chronic kidney disease; N18.9 Chronic kidney disease, unspecified; E21.3 Hyperparathyroidism, unspecified; G47.30 Sleep apnea, unspecified; F41.9 Anxiety disorder, unspecified; F32.9 Major depressive disorder, single episode, unspecified; I48.91 Unspecified atrial fibrillation; I95.1 Orthostatic hypotension; N40.1 Benign prostatic hyperplasia with lower urinary tract symptoms; Z79.4 Long term (current) use of insulin; Z79.899 Other long term (current) drug therapy; Z91.041 Radiographic dye allergy status; Z91.018 Allergy to other foods; Z95.810 Presence of automatic (implantable) cardiac defibrillator; Z96.41 Presence of insulin pump (external) (internal); Z87.891 Personal history of nicotine dependence; Z86.718 Personal history of other venous thrombosis and embolism; Z98.890 Other specified postprocedural states; Z82.49 Family history of ischemic heart disease and other diseases of the circulatory system; Z83.3 Family history of diabetes mellitus; Z84.1 Family history of disorders of kidney and ureter
CPT/HCPCS: 45385

== ENCOUNTER → 2018-03-30 | Outpatient (REF) | payer MEDICARE ==
[2018-03-30 15:57] LABS: BASO % 0.6 % (0.0-1.0); EOS # 0.1 10^3/uL (0.0-0.50); EOS % 1.7 % (0.0-3.0); HEMATOCRIT 30.6 % (42.0-52.0); HEMOGLOBIN 9.7 g/dl (13.5-17.5); LYMPH # 1.3 10^3/uL (1.5-4.5); MEAN CORPUSCULAR HEMOGLOBIN 28.5 pg (27.0-33.0); MEAN CORPUSCULAR HGB CONC 31.7 g/dl (32.0-36.5); MONO # 0.2 10^3/uL (0.0-0.8); MONO % 6.8 % (0.0-5.0); NEUTROPHILS # 1.9 10^3/uL (1.8-7.7); NEUTROPHILS % 54.9 % (36.0-66.0); PLATELET COUNT, AUTOMATED 138 10^3/uL (150-450); RED CELL DISTRIBUTION WIDTH 14.7 % (11.5-14.5); RETIC HEMOGLOBIN EQUIVALENT 32.5 pg (24-36); RETICULOCYTE # 44.5 10^9/L (17-77); RETICULOCYTE % 1.3 % (0.5-1.5); WHITE BLOOD COUNT 3.5 10^3/uL (4.0-10.0)
[2018-03-30 16:17] LABS: INR 1.02; PARTIAL THROMBOPLASTIN TIME 32.2 SECONDS (25.4-37.6); PROTHROMBIN TIME 13.6 SECONDS (12.1-14.4)
[2018-03-31 09:31] LABS: REASON FOR REVIEW PLATELET MORPHOLOGY; SLIDE REVIEW Report; SOURCE PERIPHERAL SMEAR
== END ==
LOC: M SFHCPLAZ 13:05
DX: I82.409 Acute embolism and thrombosis of unspecified deep veins of unspecified lower extremity (principal)
CPT/HCPCS: 85610

== ENCOUNTER → 2018-04-01 | Outpatient (REF) | payer MEDICARE ==
[2018-04-01 19:42] LABS: BASO % 0.2 % (0.0-1.0); HEMATOCRIT 33.1 % (42.0-52.0); HEMOGLOBIN 10.2 g/dl (13.5-17.5); IMMATURE GRANULOCYTE % 0.2 % (0-3.0); LYMPH # 1.4 10^3/uL (1.5-4.5); LYMPH % 33.4 % (24.0-44.0); MEAN CORPUSCULAR HEMOGLOBIN 28.7 pg (27.0-33.0); MEAN CORPUSCULAR HGB CONC 30.8 g/dl (32.0-36.5); MONO # 0.3 10^3/uL (0.0-0.8); MONO % 6.9 % (0.0-5.0); NEUTROPHILS # 2.4 10^3/uL (1.8-7.7); NEUTROPHILS % 58.3 % (36.0-66.0); PLATELET COUNT, AUTOMATED 133 10^3/uL (150-450); RED BLOOD COUNT 3.56 10^6/uL (4.30-6.10); RED CELL DISTRIBUTION WIDTH 14.6 % (11.5-14.5)
[2018-04-01 19:53] LABS: INR 1.07
[2018-04-01 19:54] LABS: PARTIAL THROMBOPLASTIN TIME 32.9 SECONDS (25.4-37.6)
[2018-04-09 11:54] LABS: FLOW CYTOMETRY FOR SEND OUT See Pathology Report
== END ==
LOC: M SFHCPLAZ 16:04
DX: D61.818 Other pancytopenia (principal); Z51.81 Encounter for therapeutic drug level monitoring; Z79.01 Long term (current) use of anticoagulants
CPT/HCPCS: 85610

== ENCOUNTER → 2018-04-07 | Outpatient (REF) | payer MEDICARE ==
[2018-04-07 11:18] LABS: BASO % 0.6 % (0.0-1.0); EOS # 0.1 10^3/uL (0.0-0.50); EOS % 1.5 % (0.0-3.0); HEMATOCRIT 33.2 % (42.0-52.0); HEMOGLOBIN 10.2 g/dl (13.5-17.5); IMMATURE GRANULOCYTE % 0.3 % (0-3.0); LYMPH # 1.1 10^3/uL (1.5-4.5); LYMPH % 31.8 % (24.0-44.0); MEAN CORPUSCULAR HEMOGLOBIN 28.7 pg (27.0-33.0); MEAN CORPUSCULAR HGB CONC 30.7 g/dl (32.0-36.5); MEAN CORPUSCULAR VOLUME 93.3 fl (80.0-96.0); MONO # 0.3 10^3/uL (0.0-0.8); MONO % 7.9 % (0.0-5.0); NEUTROPHILS # 1.9 10^3/uL (1.8-7.7); NEUTROPHILS % 57.9 % (36.0-66.0); PLATELET COUNT, AUTOMATED 133 10^3/uL (150-450); RED BLOOD COUNT 3.56 10^6/uL (4.30-6.10); RED CELL DISTRIBUTION WIDTH 14.6 % (11.5-14.5); WHITE BLOOD COUNT 3.3 10^3/uL (4.0-10.0)
[2018-04-07 11:25] LABS: INR 1.91; PROTHROMBIN TIME 22.2 SECONDS (12.1-14.4)
[2018-04-07 11:26] LABS: PARTIAL THROMBOPLASTIN TIME 39.7 SECONDS (25.4-37.6)
== END ==
LOC: M SFHCPLAZ 07:23
DX: D61.818 Other pancytopenia (principal); Z79.01 Long term (current) use of anticoagulants
CPT/HCPCS: 85610

== ENCOUNTER → 2018-04-15 | Outpatient (REF) | payer MEDICARE, MEDICAID ==
[2018-04-15 11:41] LABS: INR 3.02
== END ==
LOC: M SFHCPLAZ 09:38
DX: Z51.81 Encounter for therapeutic drug level monitoring (principal); Z79.01 Long term (current) use of anticoagulants; Z79.899 Other long term (current) drug therapy
CPT/HCPCS: 85610

== ENCOUNTER → 2018-04-17 | Outpatient (REF) | payer MEDICARE, MEDICAID ==
[2018-04-17 13:59] LABS: BASO % 0.3 % (0.0-1.0); EOS % 0.6 % (0.0-3.0); HEMATOCRIT 32.1 % (42.0-52.0); HEMOGLOBIN 9.9 g/dl (13.5-17.5); IMMATURE GRANULOCYTE % 0.3 % (0-3.0); LYMPH # 1.1 10^3/uL (1.5-4.5); LYMPH % 35.2 % (24.0-44.0); MEAN CORPUSCULAR HEMOGLOBIN 28.4 pg (27.0-33.0); MEAN CORPUSCULAR HGB CONC 30.8 g/dl (32.0-36.5); MONO # 0.3 10^3/uL (0.0-0.8); MONO % 9.1 % (0.0-5.0); NEUTROPHILS # 1.7 10^3/uL (1.8-7.7); NEUTROPHILS % 54.5 % (36.0-66.0); PLATELET COUNT, AUTOMATED 172 10^3/uL (150-450); RED BLOOD COUNT 3.49 10^6/uL (4.30-6.10); RED CELL DISTRIBUTION WIDTH 14.4 % (11.5-14.5); WHITE BLOOD COUNT 3.2 10^3/uL (4.0-10.0)
[2018-04-17 14:27] LABS: INR 1.68; PROTHROMBIN TIME 20.1 SECONDS (12.1-14.4)
== END ==
LOC: M SFHCPLAZ 12:24
DX: Z51.81 Encounter for therapeutic drug level monitoring (principal); Z79.891 Long term (current) use of opiate analgesic
CPT/HCPCS: 85610

== ENCOUNTER → 2018-05-06 | Outpatient (REF) | payer MEDICARE, MEDICAID ==
[2018-05-06 17:46] LABS: BASO % 0.3 % (0.0-1.0); EOS % 1.1 % (0.0-3.0); HEMATOCRIT 33.3 % (42.0-52.0); HEMOGLOBIN 10.3 g/dl (13.5-17.5); IMMATURE GRANULOCYTE % 0.5 % (0-3.0); LYMPH # 1.3 10^3/uL (1.5-4.5); LYMPH % 33.4 % (24.0-44.0); MEAN CORPUSCULAR HEMOGLOBIN 28.5 pg (27.0-33.0); MEAN CORPUSCULAR HGB CONC 30.9 g/dl (32.0-36.5); MONO # 0.3 10^3/uL (0.0-0.8); MONO % 8.6 % (0.0-5.0); NEUTROPHILS # 2.1 10^3/uL (1.8-7.7); NEUTROPHILS % 56.1 % (36.0-66.0); PLATELET COUNT, AUTOMATED 140 10^3/uL (150-450); RED BLOOD COUNT 3.62 10^6/uL (4.30-6.10); RED CELL DISTRIBUTION WIDTH 14.6 % (11.5-14.5); WHITE BLOOD COUNT 3.7 10^3/uL (4.0-10.0)
== END ==
LOC: M SFHCPLAZ 13:33
DX: D61.818 Other pancytopenia (principal)
CPT/HCPCS: 85025

== ENCOUNTER → 2018-06-08 | Outpatient (REF) | payer MEDICARE, MEDICAID ==
[2018-06-08 14:14] LABS: BASO % 0.5 % (0.0-1.0); EOS % 1.1 % (0.0-3.0); HEMATOCRIT 34.1 % (42.0-52.0); HEMOGLOBIN 10.6 g/dl (13.5-17.5); LYMPH # 1.1 10^3/uL (1.5-4.5); LYMPH % 28.9 % (24.0-44.0); MEAN CORPUSCULAR HEMOGLOBIN 28.4 pg (27.0-33.0); MEAN CORPUSCULAR HGB CONC 31.1 g/dl (32.0-36.5); MEAN CORPUSCULAR VOLUME 91.4 fl (80.0-96.0); MONO # 0.3 10^3/uL (0.0-0.8); MONO % 6.9 % (0.0-5.0); NEUTROPHILS # 2.4 10^3/uL (1.8-7.7); NEUTROPHILS % 62.6 % (36.0-66.0); PLATELET COUNT, AUTOMATED 154 10^3/uL (150-450); RED BLOOD COUNT 3.73 10^6/uL (4.30-6.10); RED CELL DISTRIBUTION WIDTH 14.6 % (11.5-14.5); RETIC HEMOGLOBIN EQUIVALENT 30.3 pg (24-36); RETICULOCYTE # 51.5 10^9/L (17-77); RETICULOCYTE % 1.4 % (0.5-1.5); WHITE BLOOD COUNT 3.8 10^3/uL (4.0-10.0)
[2018-06-08 14:41] LABS: INR 1.81; PROTHROMBIN TIME 21.3 SECONDS (12.1-14.4)
[2018-06-08 14:42] LABS: PARTIAL THROMBOPLASTIN TIME 39.1 SECONDS (25.4-37.6)
[2018-06-08 14:44] LABS: ALBUMIN 3.1 GM/DL (3.2-5.2); ALBUMIN/GLOBULIN RATIO 1.19 (1.00-1.93); ALKALINE PHOSPHATASE 57 U/L (45-117); ALT/SGPT 41 U/L (12-78); ANION GAP 9 MEQ/L (8-16); AST/SGOT 43 U/L (7-37); BILIRUBIN,TOTAL 0.4 MG/DL (0.2-1.0); BLOOD UREA NITROGEN 31 MG/DL (7-18); CALCIUM LEVEL 8.7 MG/DL (8.8-10.2); CARBON DIOXIDE LEVEL 26 MEQ/L (21-32); CHLORIDE LEVEL 105 MEQ/L (98-107); CREATININE FOR GFR 1.21 MG/DL (0.70-1.30); GLOMERULAR FILTRATION RATE > 60.0 (>42); GLUCOSE, FASTING 75 MG/DL (70-100); IRON (FE) 32 UG/DL (65-175); MAGNESIUM LEVEL 2.1 MG/DL (1.8-2.4); PERCENT SATURATION 10.9 % (19.7-50.0); POTASSIUM SERUM 4.6 MEQ/L (3.5-5.1); PSA SCREENING 0.04 NG/ML (< 4.0); PTH INTACT 51.3 PG/ML (18.5-88.0); SODIUM LEVEL 140 MEQ/L (136-145); TOTAL 25(OH) VITAMIN D 69.5 NG/ML (30.0-100.0); TOTAL IRON BINDING CAPACITY 293 UG/DL (250-450); TOTAL PROTEIN 5.7 GM/DL (6.4-8.2)
== END ==
LOC: M SFHCPLAZ 11:29
DX: D50.9 Iron deficiency anemia, unspecified (principal); I50.42 Chronic combined systolic (congestive) and diastolic (congestive) heart failure; N40.1 Benign prostatic hyperplasia with lower urinary tract symptoms; E55.9 Vitamin D deficiency, unspecified; Z51.81 Encounter for therapeutic drug level monitoring; Z79.899 Other long term (current) drug therapy
CPT/HCPCS: 83550

== ENCOUNTER → 2019-04-13 | Outpatient (POV) | payer MEDICARE, MEDICAID ==
[~2019-04-13] VITALS: Ht 162.6 cm; Wt 59.1 kg
[~2019-04-13] MED LIST changes: +ADVA1AER2 INH; +ALDA25TA2; +ALLO100T PO; +ALLO300T; +AMMO12CR7 TOP; +ASPI81CH49 PO; +ASPI81TA26 PO; +ATOM40CA PO; +ATOR40TA75 PO; +BABY81CH; +BACIDCA PO; +BUPR75TA5 PO; +CALCTAB74 PO; +CARV3.12; +CELE20TA; +CELE20TA PO; +CIPR500T19; +CLIN300C PO; +COLA100C5 PO; +COMBAER6 INH; +COMBIN INH; +COMBVENT; +CORE3.12 PO; +COUM1TAB14 PO; +COUM1TAB16 PO; +COUM1TAB17; +COUM1TAB17 PO; +COUM1TAB19 PO; +COUM2.5T17 PO; +COUM7.5T PO; +COZA25TA8; +CRES40TA PO; +CYAN100049 PO; +Coreg PO; +DOCU5LIQ PO; +DUTA1CAP; -E-Z-GAS II EFFERVESCENT PACKET (SODIUM BICARB./CITRIC ACID/SIMETHICONE) As Ordered; -E-Z-HD 98% w/w 340GM SUSP BTL As Ordered; -E-Z-PAQUE 96% w/w SUSP 176GM BTL As Ordered; +ELIQ5TAB PO; +FINA5TAB2 PO; +FLOM0.4C39; +FLOM0.4C39 PO; +FLUD0.1T PO; +FURO20TA2 PO; +FURO40TA2 PO; +GABA-1171 PO; +GABA-843 PO; +GABA600T4 PO; +GLUC1KIT SC; +GLUC5TAB3 PO; +HUMA100I5 SC; +HUMOLOG SQ; +INSUHUMDS SC; +INSULANT SC; +INSULIN R; +KLOR10TA76 PO; +KLOR1TAB77 PO; +KLOR20TA42 PO; +LAC-12LO3 TOP; +LASI20TA3 PO; +LISI-1046 PO; +LOVE0.4I2 SC; +MIDO10TA PO; +MIDO5TA PO; +NEUR300C PO; +NIFE15CA PO; +NORC1TAB7 PO; +NYST1POW9 TOP; +Nystatin Powder TOP; +OCUVTAB PO; +OMEP20CA4 PO; +OMEP40CA2 PO; +PERC5TAB12 PO; +PRESCAP6 PO; +PRIL20CA PO; +PROM-190 PO; +Potassium PO; +REFR0.5D8 OU; +ROZE8TAB16 PO; +SIMV80TA; +SPIR-10 PO; +SPIR1CAP; +TAMS0.4C2 PO; +TIOT18INH INH; +TORS5TAB2 PO; +TRAZ-163 PO; +TRAZ-189; +TRAZ1TAB11 PO; +TYLE167L PO; +ULOR80TA PO; +ULOR80TA2 PO; +VICO5TAB; +VITA100027; +VITMTA PO; +WARF-21 PO; +WARFARIN; +ZETI10TA; +ZETI10TA30 PO; +ZINC60OI TOP
[2019-04-13 13:00] VITALS: BP 124/58
--- NOTE | 2019-04-13 14:58 | CR.PDOC ---
General Date of Consultation: Apr 13, 2019 Referring Provider: A Consultation REASON FOR CONSULTATION/CHIEF COMPLAINT: DVT refractory to therapy and contraindication to anti coagulation. HISTORY OF PRESENT ILLNESS: 74 male with history of multiple DVT since 2004, was on Coumadin and developed subdural hemorrhage. Referred for filter placement. History of anaphylaxis and stopping breathing with CT dye. No history of PE. ALLERGIES: Please see below. HOME MEDICATIONS: Please see below. PAST MEDICAL HISTORY: 1. HTN. 2. DM. 3. CAD. PAST SURGICAL HISTORY: Heart bypass. FAMILY HISTORY: SOCIAL HISTORY: lives with brother. needs assistance with ADL. REVIEW OF SYSTEMS: otherwise negative. PHYSICAL EXAMINATION: VITAL SIGNS: Please see below. GENERAL APPEARANCE: comfortable at rest. HEENT: no scleral icterus. RESPIRATORY: normal breathing at rest. CARDIOVASCULAR: normal rate. ABDOMEN: abdomen non distended. EXTREMITIES: moving all 4 extremities. Bilateral legs red to the knees. non tender. skin tight. superficial wounds. sensation intact. NEUROLOGICAL: [alert and oriented]. PSYCHIATRIC: [appropriate to circumstance]. LABORATORY DATA: Please see below. 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 Patient is a candidate for filter. The main concern is the anaphylaxis to dye. We will use prior CT imaging to place the filter using anatomic landmarks. We may use gadolinium ( MRI dye ) if needed. Thank you for this referral. Vital Signs/I&O Vital Signs Date Time Temp Pulse Resp B/P (MAP) Pulse Ox O2 Delivery O2 Flow Rate FiO2 04/13/19 13:00 97.9 60 18 124/58 (80) 99 Allergies Coded Allergies: Contrast Media (Verified Allergy, Severe, SOB, 03/24/18) MS - Spinach (Verified Allergy, Severe, SOB, 03/24/18) Home Medications Scheduled Ammonium Lactate (Ammonium Lactate) 12 % Cre, 1 DOSE TOP BID, (Reported) APPLY TO FEET Aspirin (Aspirin) 81 Mg Chw, 81 MG PO QHS, (Reported) Atorvastatin Calcium (Atorvastatin Calcium) 40 Mg Tab, 40 MG PO QHS, (Reported) Bupropion HCl (Bupropion HCl) 75 Mg Tab, 75 MG PO TID, (Reported) Calcium/Vitamin D (Calcium 600+D 600-400 mg-Unit) 1 Tab Tab, 1 TAB PO BID, (Reported) Cyanocobalamin (Vitamin B-12) (Vitamin B-12) 1,000 Mcg Tab, 500 MCG PO DAILY, (Reported) Docusate Sodium (Colace) 100 Mg Cap, 100 MG PO BID, (Reported) Dutasteride (Dutasteride) 0.5 Mg Cap, DAILY, (Reported) Febuxostat (Uloric) 80 Mg Tab, 80 MG PO DAILY, (Reported) Finasteride (Finasteride) 5 Mg Tab, 5 MG PO DAILY, (Reported) Gabapentin (Gabapentin) 100 Mg Cap, 100 MG PO TID, (Reported) Insulin Lispro (Humalog Kwikpen U-100) 100 Unit/Ml Inj, 1 DOSE SC AC, (Reported) PER SLIDING SCALE Lisinopril (Lisinopril) 2.5 Mg Tab, 2.5 MG PO DAILY, (Reported) Midodrine HCl (Midodrine HCl) 10 Mg Tab, 10 MG PO TID, (Reported) Multivitamins (Thera M Plus Tablet) 1 Tab Tab, 1 TAB PO QPM, (Reported) Omeprazole (Omeprazole) 20 Mg Cap, 40 MG PO DAILY, (Reported) Potassium Chloride (Klor-Con M20) 20 Meq Tabcr, 20 MEQ PO DAILY, (Reported) Ramelteon (Rozerem) 8 Mg Tab, 8 MG PO QHS, (Reported) Tamsulosin HCl (Flomax) 0.4 Mg Cap, 0.4 MG PO QHS, (Reported) Torsemide (Torsemide) 5 Mg Tab, 5 MG PO DAILY for 30 Days, #30 Trazodone HCl (Trazodone HCl) 100 Mg Tab, QHS, (Reported) BUCK LOYA MD Apr 13, 2019 14:58
== END ==
LOC: M IRPOV 12:53
PROVIDERS: ATTEND Radiology Diagnostic Radiology
DX: I10 Essential (primary) hypertension (principal); E11.9 Type 2 diabetes mellitus without complications; I25.10 Atherosclerotic heart disease of native coronary artery without angina pectoris; Z86.718 Personal history of other venous thrombosis and embolism; Z79.01 Long term (current) use of anticoagulants; Z91.018 Allergy to other foods; Z91.041 Radiographic dye allergy status; Z86.79 Personal history of other diseases of the circulatory system

== ENCOUNTER → 2019-04-22 | Outpatient (CLI) | payer MEDICARE, MEDICAID ==
[~2019-04-22] MED LIST changes: +LIDOCAINE 1% MDV 20ML VIAL As Ordered ONE; +MIDAZOLAM INJ 2 MG/2 ML VIAL (J2250) As Ordered ONE; +OMEP1CAP73 PO; -OMEP20CA4 PO; -OMEP40CA2 PO; +OMEP40CA97 PO; +PROHANCE 279.3MG/ML 15ML VIAL (A9576) As Ordered ONE; -TRAZ-163 PO; +TRAZ-257 PO; +ZETI10TA16 PO; -ZETI10TA30 PO; +diphenhydrAMINE INJ 50MG/ML VIAL (J1200) As Ordered ONE; +fentaNYL 100 MCG/2 ML INJECTION (J3010) As Ordered ONE
--- NOTE | 2019-04-22 08:08 | IRMSE ---
[facility] IR Moderate Sedation Eval. Date and Time Date: Apr 22, 2019 Time: 08:07 ASA Classification ASA Classification: III-Severe systemic dis. Mallampati Score: I NPO: Yes Obstructive Sleep Apnea: No Interval Plan: moderate sedation BUCK LOYA MD Apr 22, 2019 08:07
--- NOTE | 2019-04-22 08:09 | IRHP ---
[facility] IR Pre-Procedure H & P General Date of Service: Apr 22, 2019 Procedure: Same Day Surgery Interval History and Physical I have seen the patient and reviewed last H & P performed within 30 days. There is no significant interval change. History of Present Illness Chief Complaint The patient is a 74-year-old male admitted with a reason for visit of DVT. PRE-PROCEDURE DIAGNOSIS: DVT HEART: normal rate. LUNGS: normal breathing at rest. ASA Classification ASA Classification: III-Severe systemic dis. Mallampati Score: I NPO: Yes Problems with prior sedation: No Obstructive Sleep Apnea: No Plan moderate sedation Allergies Coded Allergies: Contrast Media (Verified Allergy, Severe, SOB, 03/24/18) MS - Spinach (Verified Allergy, Severe, SOB, 03/24/18) Home Medications Scheduled Ammonium Lactate (Ammonium Lactate), 1 DOSE TOP BID, (Reported) Aspirin (Aspirin), 81 MG PO QHS, (Reported) Atorvastatin Calcium (Atorvastatin Calcium), 40 MG PO QHS, (Reported) Bupropion HCl (Bupropion HCl), 75 MG PO TID, (Reported) Calcium/Vitamin D (Calcium 600+D 600-400 mg-Unit), 1 TAB PO BID, (Reported) Cyanocobalamin (Vitamin B-12) (Vitamin B-12), 500 MCG PO DAILY, (Reported) Docusate Sodium (Colace), 100 MG PO BID, (Reported) Dutasteride (Dutasteride), DAILY, (Reported) Febuxostat (Uloric), 80 MG PO DAILY, (Reported) Finasteride (Finasteride), 5 MG PO DAILY, (Reported) Gabapentin (Gabapentin), 100 MG PO TID, (Reported) Insulin Lispro (Humalog Kwikpen U-100), 1 DOSE SC AC, (Reported) Lisinopril (Lisinopril), 2.5 MG PO DAILY, (Reported) Midodrine HCl (Midodrine HCl), 10 MG PO TID, (Reported) Multivitamins (Thera M Plus Tablet), 1 TAB PO QPM, (Reported) Omeprazole (Omeprazole), 40 MG PO DAILY, (Reported) Potassium Chloride (Klor-Con M20), 20 MEQ PO DAILY, (Reported) Ramelteon (Rozerem), 8 MG PO QHS, (Reported) Tamsulosin HCl (Flomax), 0.4 MG PO QHS, (Reported) Torsemide (Torsemide), 5 MG PO DAILY Trazodone HCl (Trazodone HCl), QHS, (Reported) VS, I&O, 24H, Fishbone Vital Signs/I&O Vital Signs Date Time Temp Pulse Resp B/P (MAP) Pulse Ox O2 Delivery O2 Flow Rate FiO2 04/22/19 07:51 98.4 66 16 99 BUCK LOYA MD Apr 22, 2019 08:09
--- NOTE | 2019-04-22 09:06 | POST-OPPD ---
Postoperative Procedure Note Date Of Procedure: Apr 22, 2019 Time Of Procedure: 09:03 PREOPERATIVE DIAGNOSIS: DVT. CI to AC due to SDH POSTOPERATIVE DIAGNOSIS: DVT. CI to AC due to SDH FINDINGS: normal IVC PROCEDURE: filter placed level of renal veins SURGEON: simón ANESTHESIA: moderate sedation ESTIMATED BLOOD LOSS: < 5 ml COMPLICATIONS: none POSTOPERATIVE CONDITION: stable BUCK LOYA MD Apr 22, 2019 09:06
[2019-04-22 15:00] VITALS: BP 134/64
--- NOTE | 2019-04-22 15:37 | REP ---
IR IVC filter placement. Inferior vena cavogram. Ultrasound of the right groin. IR moderate sedation. Clinical information: Documented deep vein thrombosis. Contraindication to anticoagulation due to subdural hemorrhage. Severe reaction to Omnipaque dye. Physician: Dr. Esqueda. Procedure: The patient was advised of the benefits, risks and alternatives of the procedure and informed consent was obtained. The time-out was performed with verification of the patient's name, MRN, site of procedure and type of procedure to be performed. The patient was positioned in the supine position on the angiographic table. The site was prepped and draped in the usual sterile fashion. Moderate sedation was performed by the physician including the presence of an independent trained observer that assisted in monitoring the patient's level of consciousness and physiologic status. Following the administration of Fentanyl and Versed, the physician spent 45 minutes of continuous face to face time with the patient. Preliminary ultrasound of the right groin demonstrates a patent right common femoral vein. The right common femoral vein was accessed using a micropuncture system. An 035 Amplatz wire was placed into the peripheral inferior vena cava, under fluoroscopy guidance. The wire was then passed into the inferior vena cava and the filter sheath advanced over the wire. Prior review of CT demonstrates renal vein inflow at L1-2. No renal vein anomaly or circumaortic renal vein. Given severe reaction to omnipaque, gadolinium was used to perform a venogram and confirm patency of inferior vena cava. No caval anomalies were identified. A Cook select retrieval inferior vena cava filter was then advanced through the sheath and positioned within the infrarenal inferior vena cava. The filter was then deployed in the usual fashion. Positioning was confirmed fluoroscopically. The sheath was then removed and hemostasis obtained with manual compression. The patient tolerated the procedure well and was returned to PRU in stable condition. EBL: < 15 ml. Complications: None. Conclusion: 1. Normal cava gram. 2. Successful deployment of Cook select retrievable inferior vena cava filter in the infrarenal inferior vena cava. Thank you this referral. Electronically Signed by Teresa Esqueda MD 04/22/2019 03:36 P
== END ==
LOC: M IRPRO 07:40
PROVIDERS: ATTEND Radiology Diagnostic Radiology
DX: I82.621 Acute embolism and thrombosis of deep veins of right upper extremity (principal); Z86.79 Personal history of other diseases of the circulatory system; Z91.018 Allergy to other foods; Z91.041 Radiographic dye allergy status; Z79.899 Other long term (current) drug therapy; Z79.82 Long term (current) use of aspirin; Z97.4 Presence of external hearing-aid
CPT/HCPCS: 37191; 99152; 99153; A9576; C1769; C1880; C1894; J1200; J2250; J3010

== ENCOUNTER → 2019-04-27 | Outpatient (POV) | payer MEDICARE, MEDICAID ==
[~2019-04-27] VITALS: Ht 167.6 cm; Wt 60.0 kg
[~2019-04-27] MED LIST changes: -LIDOCAINE 1% MDV 20ML VIAL As Ordered ONE; -MIDAZOLAM INJ 2 MG/2 ML VIAL (J2250) As Ordered ONE; -OMEP1CAP73 PO; +OMEP20CA4 PO; +OMEP40CA2 PO; -OMEP40CA97 PO; -PROHANCE 279.3MG/ML 15ML VIAL (A9576) As Ordered ONE; +TRAZ-163 PO; -TRAZ-257 PO; -diphenhydrAMINE INJ 50MG/ML VIAL (J1200) As Ordered ONE; -fentaNYL 100 MCG/2 ML INJECTION (J3010) As Ordered ONE
[2019-04-27 13:28] VITALS: BP 124/57
--- NOTE | 2019-04-27 14:03 | IPNPDOC ---
Text Note Date of Service The patient was seen on 04/27/19. NOTE Patient doing well 4 days status post right groin access and IVC filter placement. No swelling or pain in the right groin. On examination: Right groin access site appears unremarkable. No swelling, no hematoma or palpable mass. Femoral pulse palpable. Impression: Doing well post IVC filter placement. Filter will likely remain permanently given patient's history. No further follow-up required unless initiated by patient. Thank you for this referral. VS,Matte, I+O VS, Yusefbone, I+O Vital Signs Date Time Temp Pulse Resp B/P (MAP) Pulse Ox O2 Delivery O2 Flow Rate FiO2 04/27/19 13:28 98.1 60 16 124/57 (79) 95 BUCK LOYA MD Apr 27, 2019 14:03
== END ==
LOC: M IRPOV 13:17
PROVIDERS: ATTEND Radiology Diagnostic Radiology
DX: Z45.89 Encounter for adjustment and management of other implanted devices (principal)